=== PATIENT | female | born 1940 | race Caucasian/White ===

== ENCOUNTER 2022-07-08 17:27 | Inpatient (IN) ==
--- NOTE | 2022-07-08 17:54 | Emergency Department Note ---
Impression & Plan Pulmonary edema, Hypoxia, Elevated troponin I level, Acute respiratory acidosis, COVID-19 virus infection ED Provider Note NAME: GARRET VALDEZ AGE: 81 SEX: F : 1940 ARRIVES VIA: Ambulance INFORMANT: Patient, EMS ED PROVIDER(S): Noel Bills DO CHIEF COMPLAINT: Shortness of breath HPI: The patient is a 81-year-old female who presented to the emergency department for an evaluation of cough. The patient noticed productive cough over the course of the last few days. Her daughter who does live with her was tested positive for COVID-19 this week. The patient denies having any hemoptysis. She denies have any lower extremity pain. She does have chest pain associated with cough. She denies having any hematemesis. The patient has not been seen by her family doctor for the symptoms. Symptoms became much worse so family called 911 and the patient arrived via ALS today. The patient has been compliant with her outpatient medications. She does have an albuterol inhaler which she has been using with only minimal relief of her symptoms. She also has a history of diabetes. ROS: See above HPI for pertinent positives & negatives. A total of 10 systems reviewed and were otherwise negative. PAST MEDICAL HISTORY: See Below PAST SURGICAL HISTORY: See Below FAMILY HISTORY: See Below SOCIAL HISTORY: See Below HOME MEDICATIONS: See Below ALLERGIES: See Below VITALS: See Below PHYSICAL EXAMINATION: GENERAL: The patient is awake and alert. She appears somewhat anxious. EYES: The conjunctivae are clear. The pupils are round and reactive. EARS, NOSE, MOUTH AND THROAT: The nose is without any evidence of any deformity. NECK: The neck is nontender and supple. RESPIRATORY: Diminished breath sounds are noted throughout. There is mild tachypnea and conversational dyspnea appreciated. CARDIOVASCULAR: Regular rate and rhythm noted there no murmurs rubs or gallops normal S1 normal S2. GASTROINTESTINAL: The abdomen is soft. Abdomen is nontender. MUSCULOSKELETAL/EXTREMITIES: There is no evidence of gross deformity full range of motion is noted in the hips and shoulders. SKIN: Trace pedal edema was noted bilaterally. Skin is warm and dry. NEUROLOGIC: Patient is awake alert and oriented x3 MEDICAL DECISION MAKING: Patient is a 81-year-old female who presented to the emergency department by ambulance for an evaluation of difficulty breathing. The patient's had worsening difficulty breathing over the course the last week. Her daughter was diagnosed with COVID-19. She thinks she may also have COVID-19. She denies having any vomiting. She did have some lower extremity swelling and her physical exam did appear to be consistent with Rales and fluid overload. The patient's chest x-ray appears to be consistent pulmonary edema. She does have a low-grade fever so blood cultures were obtained. I discussed the patient's laboratory and radiographic studies with her. She was placed on supple oxygen. She was also treated with Lasix. The [facility] hospitalist was notified about the patient. Triage Nursing notes reviewed. Prior medical records reviewed Vital Signs: reviewed and remarkable for elevated blood pressure. Differential diagnosis: Reactive airway disease, pneumonia, pneumothorax, COPD, CHF, infections, cardiac ischemia, pulmonary embolism, musculoskeletal, gastrointestinal, as well as other pathologies. ER treatment provided: See below Diagnostics interpreted by me: ECG: EKG was obtained in the emergency department. My interpretation is sinus rhythm at 88 bpm. First-degree AV block was noted. Right bundle branch block pattern was appreciated. This was compared to a tracing from December 17, 2021. No changes were noted. Cardiac Monitoring: An order was placed for continuous cardiac monitoring. The monitor shows a rate of 80 bpm with sinus rhythm. Laboratory studies: As stated above and show below. Imaging studies: See below Consultation(s): Dr. Reddy was notified about the patient. Past Med/Surg History Medical History Positional vertigo Sensorineural hearing loss (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 Tinnitus of right ear Social History Smoking Status: Never smoker Preferred Language: [place] Feels Safe at Home: Yes Allergies Allergies Allergy/AdvReac Type Severity Reaction Status Date / Time No Known Allergies Allergy Unverified 12/17/21 14:42 Home Meds Home Medications Medication Instructions Recorded Confirmed albuterol sulfate 90 mcg/actuation 1 - 2 puff inhalation DAILY PRN 12/17/2111/25 aerosol inhaler Shortness Of Breath Or Wheezing allopurinol 100 mg tablet 100 mg PO QAM 12/17/21 12/17/21 duloxetine 20 mg capsule,delayed 20 mg PO QAM 12/17/21 12/17/21 release gabapentin 100 mg capsule 100 mg PO BID 12/17/21 12/17/21 glipizide 5 mg tablet, extended 5 mg PO BID 12/17/21 12/17/21 release 24 hr levothyroxine 100 mcg tablet 100 mcg PO QAM 12/17/21 12/17/21 liraglutide 0.6 mg/0.1 mL (18 mg/3 0.9 mg subcut HS 12/17/21 12/17/21 mL) subcutaneous pen injector (ITaotoza 3-Winston) pravastatin 20 mg tablet 20 mg PO HS 12/17/21 12/17/21 valsartan 320 1 tab PO QAM 12/17/21 12/17/21 mg-hydrochlorothiazide 12.5 mg tablet Results & Data (ED) Vital Signs Vital Signs - 24 hr 07/08/22 17:31 07/08/22 17:31 07/08/22 17:31 Temperature Temperature Source Oral Pulse Rate 86 Pulse Rate [Apical] Pulse Rate from SpO2 Sensor Respiratory Rate 26 H Respiratory Effort / Characteristics Labored Respiratory Depth Normal Blood Pressure 190/84 H Blood Pressure [Right Arm] Blood Pressure Mean 119 Blood Pressure Mean [Right Arm] Blood Pressure Position [Right Arm] Pulse Oximetry 88 L 88 L Oxygen Delivery Method Room Air Room Air Room Air Oxygen Flow Rate Sepsis Recent Fever Within 48 Hours Yes Sepsis New/Unexplained Change in Mental Status Yes Sepsis Action Taken by Nursing No Action Required Oxygen Flow Rate - Titration 3 Pulse Oximetry Post Tiitration 97 07/08/22 17:41 07/08/22 18:09 07/08/22 18:09 Temperature 37.6 C H Temperature Source Oral Pulse Rate Pulse Rate [Apical] 84 Pulse Rate from SpO2 Sensor Respiratory Rate 20 Respiratory Effort / Characteristics Non-Labored Respiratory Depth Normal Blood Pressure Blood Pressure [Right Arm] 197/92 H Blood Pressure Mean Blood Pressure Mean [Right Arm] 127 Blood Pressure Position [Right Arm] Pulse Oximetry 96 96 Oxygen Delivery Method Nasal Cannula Nasal Cannula Oxygen Flow Rate 2 2 Sepsis Recent Fever Within 48 Hours Sepsis New/Unexplained Change in Mental Status Sepsis Action Taken by Nursing Oxygen Flow Rate - Titration Pulse Oximetry Post Tiitration 07/08/22 18:22 07/08/22 17:43 07/08/22 17:50 Temperature Temperature Source Pulse Rate 87 84 Pulse Rate [Apical] 86 Pulse Rate from SpO2 Sensor 87 84 Respiratory Rate 20 18 23 Respiratory Effort / Characteristics Respiratory Depth Blood Pressure Blood Pressure [Right Arm] 197/92 H Blood Pressure Mean Blood Pressure Mean [Right Arm] 127 Blood Pressure Position [Right Arm] Pulse Oximetry 96 98 98 Oxygen Delivery Method Nasal Cannula Oxygen Flow Rate 2 Sepsis Recent Fever Within 48 Hours Sepsis New/Unexplained Change in Mental Status Sepsis Action Taken by Nursing Oxygen Flow Rate - Titration Pulse Oximetry Post Tiitration 07/08/22 18:00 07/08/22 18:10 07/08/22 18:20 Temperature Temperature Source Pulse Rate 85 84 87 Pulse Rate [Apical] Pulse Rate from SpO2 Sensor 84 84 Respiratory Rate 25 H 19 18 Respiratory Effort / Characteristics Respiratory Depth Blood Pressure Blood Pressure [Right Arm] Blood Pressure Mean Blood Pressure Mean [Right Arm] Blood Pressure Position [Right Arm] Pulse Oximetry 97 96 Oxygen Delivery Method Oxygen Flow Rate Sepsis Recent Fever Within 48 Hours Sepsis New/Unexplained Change in Mental Status Sepsis Action Taken by Nursing Oxygen Flow Rate - Titration Pulse Oximetry Post Tiitration 07/08/22 18:30 07/08/22 18:31 07/08/22 18:31 Temperature Temperature Source Pulse Rate 83 86 Pulse Rate [Apical] Pulse Rate from SpO2 Sensor Respiratory Rate 23 23 Respiratory Effort / Characteristics Respiratory Depth Blood Pressure 183/53 H Blood Pressure [Right Arm] Blood Pressure Mean 96 Blood Pressure Mean [Right Arm] Blood Pressure Position [Right Arm] Pulse Oximetry Oxygen Delivery Method Oxygen Flow Rate Sepsis Recent Fever Within 48 Hours Sepsis New/Unexplained Change in Mental Status Sepsis Action Taken by Nursing Oxygen Flow Rate - Titration Pulse Oximetry Post Tiitration 07/08/22 18:40 07/08/22 18:50 07/08/22 19:00 Temperature Temperature Source Pulse Rate 82 83 80 Pulse Rate [Apical] Pulse Rate from SpO2 Sensor Respiratory Rate 22 24 19 Respiratory Effort / Characteristics Respiratory Depth Blood Pressure Blood Pressure [Right Arm] Blood Pressure Mean Blood Pressure Mean [Right Arm] Blood Pressure Position [Right Arm] Pulse Oximetry Oxygen Delivery Method Oxygen Flow Rate Sepsis Recent Fever Within 48 Hours Sepsis New/Unexplained Change in Mental Status Sepsis Action Taken by Nursing Oxygen Flow Rate - Titration Pulse Oximetry Post Tiitration 07/08/22 19:05 07/08/22 19:09 07/08/22 19:28 Temperature Temperature Source Pulse Rate Pulse Rate [Apical] 81 80 82 Pulse Rate from SpO2 Sensor Respiratory Rate 20 17 18 Respiratory Effort / Characteristics Non-Labored Spontaneous Non-Labored Spontaneous Respiratory Depth Normal Normal Blood Pressure Blood Pressure [Right Arm] 178/57 H 178/57 H 201/73 H Blood Pressure Mean Blood Pressure Mean [Right Arm] 97 97 115 Blood Pressure Position [Right Arm] Sitting Sitting Pulse Oximetry 93 99 Oxygen Delivery Method Room Air Nasal Cannula Oxygen Flow Rate 3 Sepsis Recent Fever Within 48 Hours Sepsis New/Unexplained Change in Mental Status Sepsis Action Taken by Nursing Oxygen Flow Rate - Titration Pulse Oximetry Post Tiitration Home Medications Current Medication List: was personally reviewed by me Laboratory Data Attestation: I reviewed the patient's lab results. Result diagrams: 07/08/22 17:45 07/08/22 17:45 Lab Results 07/08/22 07/08/22 07/08/22 Range/Units 17:45 17:45 17:45 WBC 11.23 H (4.8-10.8) K/ul RBC 4.18 (3.93-5.22) M/uL Hgb 12.0 (12.0-16.0) g/dl Hct 37.7 (34.1-44.9) % MCV 90.2 (80.0-100.0) fL MCH 28.7 (25.0-34.0) pg MCHC 31.8 L (32.0-36.0) g/dL RDW Std Deviation 47.8 H (36.4-46.3) fL RDW Coeff of Gilberto 14.6 H (11.5-14.5) % Plt Count 193 (130-400) K/uL MPV 9.7 (9.4-12.3) fL Immature Gran % (Auto) 0.4 % Neut % (Auto) 82.3 % Lymph % (Auto) 6.9 % Keith % (Auto) 9.3 % Eos % (Auto) 0.9 % Baso % (Auto) 0.2 % Neut # (Auto) 9.25 H (1.4-6.5) K/uL Lymph # (Auto) 0.77 L (1.2-3.4) K/uL Keith # (Auto) 1.04 H (0.24-0.82) K/uL Eos # (Auto) 0.10 (0-0.50) K/uL Baso # (Auto) 0.02 (0-0.2) K/uL Immature Gran # (Auto) 0.05 H (0.00-0.02) K/uL PT (9.0-12.0) Seconds INR (0.9-1.1) APTT (21.0-31.0) Seconds PTT Ratio VBG pH (7.36-7.41) VBG pCO2 (38-50) mmHg VBG pO2 mmHg VBG HCO3 mmol/L VBG O2 Saturation % VBG Base Excess mEq/L Sodium 137 (136-145) mmol/L Potassium 4.7 (3.5-5.1) mmol/L Chloride 103 (98-107) mmol/L Carbon Dioxide 26 (21-32) mmol/L Anion Gap 8 (3-11) BUN 27 H (6-23) mg/dl Creatinine 1.43 H (0.6-1.2) mg/dl Est Cr Clr Drug Dosing 38.9 ml/min Est GFR ( Amer) 40.3 ml/min Est GFR (Non-Af Amer) 34.7 ml/min BUN/Creatinine Ratio 18.9 (10-20) Glucose 190 H (70-99(Fasting)) mg/dl Lactate 1.3 (0.4-2.0) mmol/L Calcium 8.7 (8.5-10.1) mg/dl Magnesium 1.7 (1.7-2.4) mg/dl Total Bilirubin 0.4 (0.2-1.0) mg/dl Direct Bilirubin 0.1 (0-0.2) mg/dl AST 48 H (13-39) U/L ALT 85 H (7-52) U/L Alkaline Phosphatase 111 H (34-104) U/L Troponin I High Sens 14.8 H (0-14) pg/ml B-Natriuretic Peptide (0-100) pg/ml Total Protein 7.0 (6.0-8.3) gm/dl Albumin 3.7 (3.4-5.0) gm/dl Procalcitonin (0-0.5) ng/ml SARS-CoV-2 (PCR) (Negative) Influenza Type A (PCR) (Neg) Influenza Type B (PCR) (Neg) RSV (RT-PCR) (Neg) 07/08/22 07/08/2222 Range/Units 17:45 17:45 18:04 WBC (4.8-10.8) K/ul RBC (3.93-5.22) M/uL Hgb (12.0-16.0) g/dl Hct (34.1-44.9) % MCV (80.0-100.0) fL MCH (25.0-34.0) pg MCHC (32.0-36.0) g/dL RDW Std Deviation (36.4-46.3) fL RDW Coeff of Gilberto (11.5-14.5) % Plt Count (130-400) K/uL MPV (9.4-12.3) fL Immature Gran % (Auto) % Neut % (Auto) % Lymph % (Auto) % Keith % (Auto) % Eos % (Auto) % Baso % (Auto) % Neut # (Auto) (1.4-6.5) K/uL Lymph # (Auto) (1.2-3.4) K/uL Keith # (Auto) (0.24-0.82) K/uL Eos # (Auto) (0-0.50) K/uL Baso # (Auto) (0-0.2) K/uL Immature Gran # (Auto) (0.00-0.02) K/uL PT 10.3 (9.0-12.0) Seconds INR 1.0 (0.9-1.1) APTT 26.8 (21.0-31.0) Seconds PTT Ratio 1.0 VBG pH (7.36-7.41) VBG pCO2 (38-50) mmHg VBG pO2 mmHg VBG HCO3 mmol/L VBG O2 Saturation % VBG Base Excess mEq/L Sodium (136-145) mmol/L Potassium (3.5-5.1) mmol/L Chloride (98-107) mmol/L Carbon Dioxide (21-32) mmol/L Anion Gap (3-11) BUN (6-23) mg/dl Creatinine (0.6-1.2) mg/dl Est Cr Clr Drug Dosing ml/min Est GFR ( Amer) ml/min Est GFR (Non-Af Amer) ml/min BUN/Creatinine Ratio (10-20) Glucose (70-99(Fasting)) mg/dl Lactate (0.4-2.0) mmol/L Calcium (8.5-10.1) mg/dl Magnesium (1.7-2.4) mg/dl Total Bilirubin (0.2-1.0) mg/dl Direct Bilirubin (0-0.2) mg/dl AST (13-39) U/L ALT (7-52) U/L Alkaline Phosphatase (34-104) U/L Troponin I High Sens (0-14) pg/ml B-Natriuretic Peptide 124 H (0-100) pg/ml Total Protein (6.0-8.3) gm/dl Albumin (3.4-5.0) gm/dl Procalcitonin 0.08 (0-0.5) ng/ml SARS-CoV-2 (PCR) (Negative) Influenza Type A (PCR) (Neg) Influenza Type B (PCR) (Neg) RSV (RT-PCR) (Neg) 07/08/22 07/08/22 Range/Units 18:04 18:27 WBC (4.8-10.8) K/ul RBC (3.93-5.22) M/uL Hgb (12.0-16.0) g/dl Hct (34.1-44.9) % MCV (80.0-100.0) fL MCH (25.0-34.0) pg MCHC (32.0-36.0) g/dL RDW Std Deviation (36.4-46.3) fL RDW Coeff of Gilberto (11.5-14.5) % Plt Count (130-400) K/uL MPV (9.4-12.3) fL Immature Gran % (Auto) % Neut % (Auto) % Lymph % (Auto) % Keith % (Auto) % Eos % (Auto) % Baso % (Auto) % Neut # (Auto) (1.4-6.5) K/uL Lymph # (Auto) (1.2-3.4) K/uL Keith # (Auto) (0.24-0.82) K/uL Eos # (Auto) (0-0.50) K/uL Baso # (Auto) (0-0.2) K/uL Immature Gran # (Auto) (0.00-0.02) K/uL PT (9.0-12.0) Seconds INR (0.9-1.1) APTT (21.0-31.0) Seconds PTT Ratio VBG pH 7.29 L (7.36-7.41) VBG pCO2 57 H (38-50) mmHg VBG pO2 30 mmHg VBG HCO3 27 mmol/L VBG O2 Saturation < 60.0 % VBG Base Excess -0.3 mEq/L Sodium (136-145) mmol/L Potassium (3.5-5.1) mmol/L Chloride (98-107) mmol/L Carbon Dioxide (21-32) mmol/L Anion Gap (3-11) BUN (6-23) mg/dl Creatinine (0.6-1.2) mg/dl Est Cr Clr Drug Dosing ml/min Est GFR ( Amer) ml/min Est GFR (Non-Af Amer) ml/min BUN/Creatinine Ratio (10-20) Glucose (70-99(Fasting)) mg/dl Lactate (0.4-2.0) mmol/L Calcium (8.5-10.1) mg/dl Magnesium (1.7-2.4) mg/dl Total Bilirubin (0.2-1.0) mg/dl Direct Bilirubin (0-0.2) mg/dl AST (13-39) U/L ALT (7-52) U/L Alkaline Phosphatase (34-104) U/L Troponin I High Sens (0-14) pg/ml B-Natriuretic Peptide (0-100) pg/ml Total Protein (6.0-8.3) gm/dl Albumin (3.4-5.0) gm/dl Procalcitonin (0-0.5) ng/ml SARS-CoV-2 (PCR) POSITIVE A* (Negative) Influenza Type A (PCR) Negative (Neg) Influenza Type B (PCR) Negative (Neg) RSV (RT-PCR) Negative (Neg) Imaging Data Radiologist's Impression: Chest X-Ray 07/08/22 17:41 XR chest 1V portable CLINICAL HISTORY: Sepsis TECHNIQUE: Single frontal radiograph of the chest was obtained. Comparison: None available at the time of this dictation. FINDINGS: Exam is limited by underpenetration. Cardiomegaly is noted. Prominence and cephalization of the vasculature is seen. No evidence of pleural effusion or pneumothorax. IMPRESSION: Mild pulmonary edema. Cardiomegaly is noted. ACT 112: Negative or not required by law. Electronically signed by: Ford Winters M.D. 07/08/2022 6:27 PM Discharge Plan Visit Data Chief Complaint: Shortness of Breath/Dyspnea Stated Complaint: SHORTNESS OF BREATH, COVID EXPOS ED Provider: Noel Bills Discharge Problem: Pulmonary edema, Hypoxia, Elevated troponin I level, Acute respiratory ac idosis, COVID-19 virus infection Patient Disposition: Being Evaluated by Hospitalist Forms Stand Alone Forms: [facility] Prescriptions Prescriptions: No Action glipizide 5 mg tablet extended release 24 hr 5 mg PO BID allopurinol 100 mg tablet 100 mg PO QAM levothyroxine 100 mcg tablet 100 mcg PO QAM pravastatin 20 mg tablet 20 mg PO HS gabapentin 100 mg capsule 100 mg PO BID albuterol sulfate 90 mcg/actuation HFA aerosol inhaler 1 - 2 puff INHALATION DAILY PRN (Reason: Shortness Of Breath Or Wheezing) duloxetine 20 mg capsule,delayed release(DR/EC) 20 mg PO QAM valsartan-hydrochlorothiazide 320-12.5 mg tablet 1 tab PO QAM Victoza 3-Winston 0.6 mg/0.1 mL (18 mg/3 mL) pen injector 0.9 mg SUBCUT HS Referrals Referrals: Marilin Joshua PA-C [Primary Care Provider] -
[2022-07-08 18:11] LABS: Basophils # (auto) 0.02 K/uL (0-0.2); Basophils % (auto) 0.2 %; Eosinophils % (auto) 0.9 %; Hematocrit (blood only) 37.7 % (34.1-44.9); Immature Granulocytes # (auto) 0.05 K/uL (0.00-0.02); Immature Granulocytes % (auto) 0.4 %; Lymphocytes # (auto) 0.77 K/uL (1.2-3.4); Lymphocytes % (auto) 6.9 %; Mean Corpuscular Hemoglobin 28.7 pg (25.0-34.0); Mean Corpuscular Hgb Conc 31.8 g/dL (32.0-36.0); Mean Corpuscular Volume 90.2 fL (80.0-100.0); Mean Platelet Volume 9.7 fL (9.4-12.3); Monocytes # (auto) 1.04 K/uL (0.24-0.82); Monocytes % (auto) 9.3 %; Neutrophils # (auto) 9.25 K/uL (1.4-6.5); Neutrophils % (auto) 82.3 %; Platelet Count 193 K/uL (130-400); RDW Coefficient of Variation 14.6 % (11.5-14.5); RDW Standard Deviation 47.8 fL (36.4-46.3); Red Blood Count 4.18 M/uL (3.93-5.22); White Blood Count 11.23 K/ul (4.8-10.8)
--- NOTE | 2022-07-08 18:29 | XRay Report ---
XR chest 1V portable CLINICAL HISTORY: Sepsis TECHNIQUE: Single frontal radiograph of the chest was obtained. Comparison: None available at the time of this dictation. FINDINGS: Exam is limited by underpenetration. Cardiomegaly is noted. Prominence and cephalization of the vascu lature is seen. No evidence of pleural effusion or pneumothorax. IMPRESSION: Mild pulmonary edema. Cardiomegaly is noted. ACT 112: Negative or not required by law. Electronically signed by: Ford Winters M.D. 07/08/2022 6:27 PM
[2022-07-08 18:30] LABS: Partial Thromboplastin Time 26.8 Seconds (21.0-31.0); Prothrombin Time 10.3 Seconds (9.0-12.0)
[2022-07-08 18:38] LABS: Base Excess VBG -0.3 mEq/L; HCO3 VBG 27 mmol/L; Oxygen Saturation VBG < 60.0 %; PCO2 VBG 57 mmHg (38-50); PO2 VBG 30 mmHg; pH VBG 7.29 (7.36-7.41)
[2022-07-08 18:40] LABS: Troponin I High Sensitivity 14.8 pg/ml (0-14)
[2022-07-08 18:51] LABS: Albumin Level 3.7 gm/dl (3.4-5.0); BUN Creatinine Ratio 18.9 (10-20); Bilirubin Direct 0.1 mg/dl (0-0.2); Bilirubin,Total 0.4 mg/dl (0.2-1.0); Calcium 8.7 mg/dl (8.5-10.1); Creatinine Clr Calc Pharmacy 38.9 ml/min; Est GFR (African American) 40.3 ml/min; Est GFR (Non-African American) 34.7 ml/min; Magnesium 1.7 mg/dl (1.7-2.4); Potassium 4.7 mmol/L (3.5-5.1)
[2022-07-08] MEDS ORDERED: FUROSEMIDE 40 MG/4 ML VIAL IV ONE (19:18)
[2022-07-08 19:23] LABS: Influenza A virus by PCR Negative (Neg); Influenza B virus by PCR Negative (Neg); RSV by PCR Negative (Neg)
[2022-07-08 19:29] LABS: SARS CoV2 RNA(COVID-19) InHosp POSITIVE (Negative)
[2022-07-08] MEDS ORDERED: dexAMETHasone**PF** 10 MG/ML VIAL IV ONE (19:30)
--- NOTE | 2022-07-08 19:42 | History & Physical Report ---
Date of Service July 08, 2022 Assessment & Plan (1) COVID-19 virus infection: Plan: - Gradual development of productive cough, dyspnea on exertion fatigue, general weakness for the past 4 days. - Daughter, who lives with patient, tested positive for COVID this week. - Patient is unvaccinated, with history of COPD, diabetes, obesity putting her at risk for moderate/severe illness. - We will place patient on IV steroids, but defer on remdesivir given DIANA, borderline GFR at 34. - Supportive care with Tylenol, Mucinex, and treatments, incentive spirometer. - WBC mildly elevated, however Pro-Carlos Alberto normal and CXR without evidence of superimposed bacterial pneumonia, therefore will hold off on antibiotics for now. Blood cultures obtained. (2) Elevated troponin I level: Plan: - troponin mildly elevated to 14.8, likely due to hypoxia, vascular congestion, underlying COVID infection. Will trend, obtain echo. - EKG today with first-degree AV block and RBBB, both which are seen on EKG from November of this year. There are inverted T waves, and it was notably in V1, which are also apparent on prior EKG. (3) Acute respiratory acidosis: Plan: - pH 7.29, CO2 57, COVID-19 infection. - Continue home inhalers with scheduled neb treatments, flutter valve, as well as steroids for hypoxia due to COVID-19. (4) Pulmonary edema: Plan: - No history of heart failure per chart review, BNP mildly elevated 124 but with lower extremity edema and pulmonary edema on CXR. - 40 mg IV Lasix given in ED, will continue 40 mg twice daily. - Echo as above. (5) Hypertension: Plan: - Hold valsartan/HCTZ given DIANA, will order Lopressor as needed overnight for hypotension. (6) DIANA (acute kidney injury): Plan: - Creatinine 1.43, only have 1 prior lab value to go off of but was 1.1 earlier this year. - Likely a combination of taking regular Advil and meloxicam for symptomatic management of COVID-19 infection, as well as decreased oral intake over the past day or so. - Hold on fluids, use Tylenol for pain control. Hold valsartan/HCTZ. - We will avoid fluids for now given her edema in her legs on CXR, and may have to accept transient rise in creatinine with Lasix, although improving her volume overload may ultimately help improve her kidney function. (7) COPD (chronic obstructive pulmonary disease): Plan: - Continue home inhalers with scheduled neb treatment. - Steroids, as above for COVID-19 infection. - Quit smoking 20 years ago. (8) DM2 (diabetes mellitus, type 2): Plan: - Hold oral medications, placed on weight-based/accounting for steroids basal/bolus insulin. - A1c in M. - DM/low Na diet. (9) Gout: Plan: - Continue allopurinol. Plan - Admit to PCU. - SCDs, Lovenox for VTE ppx. - Full Code. History of Present Illness Chief Complaint: SOB x 3 days Primary Care Provider: Marilin Joshua PA-C Griselda Perez is a 81-year-old female with a past medical history significant for hypertension, hyperlipidemia, DM2, hypothyroidism, depression, CKD 3, gout, who is presenting today to be evaluated for cough. Her daughter, who she lives with tested positive for COVID-19 this week. Patient has developed a cough earlier this week and has had some chest pain associated with it. She only has chest pain with cough, never at rest or with exertion. She developed difficulty breathing today when ambulating home, therefore family called 911 for evaluation in the ED. she does have some lower extremity swelling. No complaints of chest pain, or shortness of breath at rest, palpitations, hemoptysis, abdominal pain, nausea, vomiting. On presentation to the ED, patient was hypertensive with highest BP recorded at 201/73, 93% on room air, so transitioned to nasal cannula now at 98% on 3 L NC. She is not tachycardic, afebrile, RR < 24. Labs are significant for elevated WBC 11.23, with left shift. VB.2 /. Renal function slightly off baseline, creatinine 1.43, BUN 27. Glucose is about 190. AST, ALT, alk phos all elevated 48/85/111 respectively. High sensitivity troponin 14.8. BNP 124. She is COVID-positive. Her CXR showed mild mild edema. Allergies Allergy/AdvReac Type Severity Reaction Status Date / Time No Known Allergies Allergy Verified 07/08/22 19:32 Home Medications Medication Instructions Recorded Confirmed Type albuterol sulfate 90 mcg/actuation 1 - 2 puff inhalation DAILY PRN 12/17/21 07/08/22 History aerosol inhaler Shortness Of Breath Or Wheezing duloxetine 20 mg capsule,delayed 20 mg PO QAM 12/17/21 07/08/22 History release gabapentin 100 mg capsule 100 mg PO BID 12/17/21 07/08/22 History glipizide 5 mg tablet, extended 5 mg PO BIDM 12/17/21 07/08/22 History release 24 hr levothyroxine 100 mcg tablet 100 mcg PO QAM 12/17/21 07/08/22 History liraglutide 0.6 mg/0.1 mL (18 mg/3 0.9 mg subcut HS 12/17/21 07/08/22 History mL) subcutaneous pen injector (LogLogictoza 3-Winston) pravastatin 20 mg tablet 20 mg PO HS 12/17/21 07/08/22 History valsartan 320 1 tab PO QAM 12/17/21 07/08/22 History mg-hydrochlorothiazide 12.5 mg tablet allopurinol 300 mg tablet 300 mg PO QAM 07/08/22 07/08/22 History ibuprofen 125 mg-acetaminophen 250 2 tab PO Q8H PRN Pain 07/08/22 07/08/22 H istory mg tablet (Advil Dual Action) ibuprofen 600 mg tablet 600 mg PO Q8H PRN Pain 07/08/22 07/08/22 History meclizine 25 mg tablet 25 mg PO DIRECTED PRN Dizziness 07/08/22 07/08/22 History melatonin 3 mg tablet 3 mg PO HS PRN Sleep 07/08/22 07/08/22 History meloxicam 15 mg tablet 15 mg PO QAM 07/08/22 07/08/22 History sennosides 8.6 mg tablet 8.6 mg PO DAILY PRN Constipation 07/08/22 07/08/22 History (Vegetable Laxative) Past Med/Surg History Medical History Positional vertigo Sensorineural hearing loss (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 Tinnitus of right ear Social History Smoking Status: Former smoker Hx Alcohol Use: Yes (quit 20+ years ago) Hx Substance Use: No Preferred Language: Irish Beliefs That Will Affect Care: None Current Living Situation: Alone Feels Safe at Home: Yes Safety Concerns: Feels Safe At This Time Assistive Devices: Cane Review of Systems Review of Systems: Constitutional: chills, weakness, fatigue, myalgias, x4 days; no anorexia, night sweats Eyes: No diplopia, no worsening or blurred vision ENT: normal hearing, no trouble swallowing Respiratory: cough and CHAMBERS x 4 days; no SOB at rest Cardiovascular: No chest pain, tightness or palpitations Abdomen: No pain, nausea, vomiting, diarrhea or constipation : Denies dysuria, hematuria, increased urgency/frequency, urinary retention Musculoskeletal: No joint pain, calf pain, swelling Neurologic: No weakness, numbness/tingling, or balance problems Psychiatric: No anxiety or depression Skin: No rash or itch Physical Exam Physical Exam: General: awake, alert, no apparent distress Head: Normocephalic, atraumatic ENT: PERRL, EOMI, no pharyngeal exudate, mucous membranes moist Chest: Diminished breath sounds throughout with conversational dyspnea Cardiac: Regular rate and rhythm, no murmur, no JVD, normal peripheral pulses, good capillary refill Abdominal: NABS x 4 quadrants, soft, nontender to palpation, no rebound, guarding or tenderness Extremities: Bilateral lower extremity edema; normal inspection, no erythema, calfs nontender to palpation Psych: Normal mood and affect Neuro: AAO x 3, strength intact bilaterally and rated 5/5, no motor deficits, speech is clear, no peripheral sensory deficits Skin: no rash or erythema Results & Data Results & Data ([facility]) Vital Signs (Past 12 Hours) Vital Signs Temp Pulse Pulse Resp BP BP Pulse Ox 07/08/22 19:28 82 18 201/73 H 99 07/08/22 19:09 80 17 178/57 H 93 07/08/22 19:05 81 20 178/57 H 07/08/22 19:00 80 19 07/08/22 18:50 83 24 07/08/22 18:40 82 22 07/08/22 18:31 86 23 07/08/22 18:31 183/53 H 07/08/22 18:30 83 23 07/08/22 18:20 87 18 07/08/22 18:10 84 19 96 07/08/22 18:00 85 25 H 97 07/08/22 17:50 84 23 98 07/08/22 17:43 87 18 98 07/08/22 18:22 86 20 197/92 H 96 07/08/22 18:09 84 20 197/92 H 96 07/08/22 18:09 96 07/08/22 17:41 37.6 C H 07/08/22 17:31 88 L 07/08/22 17:31 07/08/22 17:31 86 26 H 190/84 H 88 L O2 Del Method O2 Flow Rate 07/08/22 19:28 Nasal Cannula 3 07/08/22 19:09 Room Air 07/08/22 19:05 07/08/22 19:00 07/08/22 18:50 07/08/22 18:40 07/08/22 18:31 07/08/22 18:31 07/08/22 18:30 07/08/22 18:20 07/08/22 18:10 07/08/22 18:00 07/08/22 17:50 07/08/22 17:43 07/08/22 18:22 Nasal Cannula 2 07/08/22 18:09 Nasal Cannula 2 07/08/22 18:09 Nasal Cannula 2 07/08/22 17:41 07/08/22 17:31 Room Air 07/08/22 17:31 Room Air 07/08/22 17:31 Room Air Laboratory Results Abnormal lab results 07/08/22 07/08/22 07/08/22 Range/Units 17:45 17:45 18:04 WBC 11.23 H (4.8-10.8) K/ul MCHC 31.8 L (32.0-36.0) g/dL RDW Std Deviation 47.8 H (36.4-46.3) fL RDW Coeff of Gilberto 14.6 H (11.5-14.5) % Neut # (Auto) 9.25 H (1.4-6.5) K/uL Lymph # (Auto) 0.77 L (1.2-3.4) K/uL Valley # (Auto) 1.04 H (0.24-0.82) K/uL Immature Gran # (Auto) 0.05 H (0.00-0.02) K/uL VBG pH (7.36-7.41) VBG pCO2 (38-50) mmHg BUN 27 H (6-23) mg/dl Creatinine 1.43 H (0.6-1.2) mg/dl Glucose 190 H (70-99(Fasting)) mg/dl AST 48 H (13-39) U/L ALT 85 H (7-52) U/L Alkaline Phosphatase 111 H (34-104) U/L Troponin I High Sens 14.8 H (0-14) pg/ml B-Natriuretic Peptide 124 H (0-100) pg/ml SARS-CoV-2 (PCR) (Negative) 07/08/22 07/08/22 Range/Units 18:04 18:27 WBC (4.8-10.8) K/ul MCHC (32.0-36.0) g/dL RDW Std Deviation (36.4-46.3) fL RDW Coeff of Gilberto (11.5-14.5) % Neut # (Auto) (1.4-6.5) K/uL Lymph # (Auto) (1.2-3.4) K/uL Valley # (Auto) (0.24-0.82) K/uL Immature Gran # (Auto) (0.00-0.02) K/uL VBG pH 7.29 L (7.36-7.41) VBG pCO2 57 H (38-50) mmHg BUN (6-23) mg/dl Creatinine (0.6-1.2) mg/dl Glucose (70-99(Fasting)) mg/dl AST (13-39) U/L ALT (7-52) U/L Alkaline Phosphatase (34-104) U/L Troponin I High Sens (0-14) pg/ml B-Natriuretic Peptide (0-100) pg/ml SARS-CoV-2 (PCR) POSITIVE A* (Negative) Diagnostic Findings Chest X-Ray 07/08/22 17:41 XR chest 1V portable CLINICAL HISTORY: Sepsis TECHNIQUE: Single frontal radiograph of the chest was obtained. Comparison: None available at the time of this dictation. FINDINGS: Exam is limited by underpenetration. Cardiomegaly is noted. Prominence and cephalization of the vasculature is seen. No evidence of pleural effusion or pneumothorax. IMPRESSION: Mild pulmonary edema. Cardiomegaly is noted. ACT 112: Negative or not required by law. Electronically signed by: Ford Winters M.D. 07/08/2022 6:27 PM ECG Additional Comments: Poor data quality, interpretation may be adversely affected Sinus rhythm with 1st degree A-V block Right bundle branch block Inferior infarct (cited on or before 08-JUL-2022) Abnormal ECG When compared with ECG of 17-DEC-2021 13:24, Previous ECG has undetermined rhythm, needs review Inverted T waves have replaced nonspecific T wave abnormality in Inferior leads T wave amplitude has increased in Lateral leads. Code Status & VTE Plan Code Status Full code. Supervising Physician Co-Signing Physician Notes Attending addendum: I have physically seen this patient, have supervised the medical residents activities, and agree with the H&P unless as otherwise noted. Assessment and Plan: COVID-19 infection with hypoxia- Placed on dexamethasone 6 mg IV daily Not a candidate for remdesivir now due to borderline acute kidney function with a GFR of 34. Will reassess in a.m. tomorrow Guaifenesin extended release 12 mg p.o. twice daily Incentive spirometry No suggestion of secondary bacterial pneumonia at this time Pulmonary edema/elevated troponin level- May be secondary to stress of COVID infection Troponin 14.8 on admission The patient will be admitted to telemetry for serial cardiac enzymes, serial EKG's, cardiac rhythm monitoring and a 2-D echocardiogram with Dopplers. Received furosemide 40 mg IV in ED and will continue twice daily Remaining orders and notations as noted PG Care Time/CCT Total # of Minutes Spent Total Time Spent with Patient: Total time spent is greater than 50% in coordination of care (as documented) at patient's floor/unit and/or counseling patient: Coding Level of Care Code 46353 Initial Inpt Care Lvl 3 Diagnoses COVID-19 virus infection U07.1 Elevated troponin I level R77.8 Acute respiratory acidosis J96.02 Pulmonary edema J81.0 Chronicity: acute Hypertension I10 DIANA (acute kidney injury) N17.9 COPD (chronic obstructive pulmonary disease) J44.9 DM2 (diabetes mellitus, type 2) E11.9 Gout M10.9 (1) Pulmonary edema Chronicity: acute Qualified Code(s): J81.0 - Acute pulmonary edema
[2022-07-08 20:25] LABS: Appearance Urine Clear (Clear); Bacteria Urine Automated Negative (Negative); Bilirubin Urine Negative (Negative); Blood Urine Negative (Negative); Color Urine Yellow; Epithelial Cell Urine Auto >30 /lpf (0-5); Glucose Urine UA Negative (Negative); Ketones Urine Negative (Negative); Leukocyte Esterase Urine 1+ (Negative); Nitrite Urine Negative (Negative); Protein Urine Trace (Negative); RBC Urine Automated 0-4 /hpf (0-4); Specific Gravity Urine 1.016 (1.000-1.030); Urobilinogen Urine Negative (Negative)
[2022-07-08] MEDS ORDERED: CARBOHYDRATES FOR HYPOGLYCEMIA PO PRN (23:50)
[2022-07-08] MEDS ORDERED: MECLIZINE HCL 25 MG TAB PO PRN (23:50)
[2022-07-08] MEDS ORDERED: ALUMINUM/MAGNESIUM SUSP 30 ML UDC PO PRN (23:50)
[2022-07-08] MEDS ORDERED: GLUCAGON FOR INJ 1 MG VIAL SQ PRN (23:50)
[2022-07-08] MEDS ORDERED: guaiFENesin 600 MG TABCR PO PRN (23:50)
[2022-07-08] MEDS ORDERED: DC ALL PREVIOUSLY ORDERED DIABETES MEDS ONE (23:50)
[2022-07-08] MEDS ORDERED: GLUCOSE 40% GEL 15 GM TUBE PO PRN (23:50)
[2022-07-08] MEDS ORDERED: GLUCOSE 10 TAB/TUBE PO PRN (23:50)
[2022-07-08] MEDS ORDERED: POLYETHYLENE (MIRALAX) 17 GM PACK PO PRN (23:50)
[2022-07-08] MEDS ORDERED: DEXTROSE 50% 50 ML SYRINGE IV PRN (23:50)
[2022-07-08] MEDS ORDERED: ALBUTEROL 0.083% NEBU SOLN 3 ML VIAL INH PRN (23:50)
[2022-07-08] MEDS ORDERED: SENNA 8.6 MG TAB PO PRN (23:50)
[2022-07-08] MEDS ORDERED: ALBUTEROL HFA 8 GM INHALER INH PRN (23:50)
[2022-07-08] MEDS ORDERED: MELATONIN 3 MG TAB PO PRN (23:50)
[2022-07-08] MEDS ORDERED: ONDANSETRON INJ 2 MG/ML 2 ML VIAL IV PRN (23:50)
[2022-07-09] MEDS: LANTUS PER UNIT CHARGE SQ SCH ×3 (00:58→20:43)
[2022-07-09] MEDS: INSULIN ASPART PER UNIT SC SCH ×5 (00:58→20:43)
[2022-07-09] MEDS: GABAPENTIN 100 MG CAP PO SCH ×3 (02:42→20:28)
[2022-07-09] MEDS: METOPROLOL TARTRATE 1 MG/ML VIAL IV SCH ×4 (02:44→17:13)
[2022-07-09] MEDS: PRAVASTATIN SOD 20 MG TAB PO SCH ×2 (02:44→20:28)
[2022-07-09] MEDS: LEVOTHYROXINE SODIUM 100 MCG TABLET PO SCH (05:15)
[2022-07-09] MEDS ORDERED: COUGH DROP (SUGAR FREE) LOZ 24 LOZ/1 BOX BUCCAL PRN (05:54)
[2022-07-09 07:45] LABS: Hematocrit (blood only) 35.6 % (34.1-44.9); Hemoglobin 11.7 g/dl (12.0-16.0); Mean Corpuscular Hemoglobin 28.7 pg (25.0-34.0); Mean Corpuscular Hgb Conc 32.9 g/dL (32.0-36.0); Mean Corpuscular Volume 87.5 fL (80.0-100.0); Mean Platelet Volume 9.7 fL (9.4-12.3); Platelet Count 217 K/uL (130-400); RDW Coefficient of Variation 14.6 % (11.5-14.5); RDW Standard Deviation 46.5 fL (36.4-46.3); Red Blood Count 4.07 M/uL (3.93-5.22); White Blood Count 12.14 K/ul (4.8-10.8)
[2022-07-09 08:16] LABS: Basophils # (auto) 0.01 K/uL (0-0.2); Basophils % (auto) 0.1 %; Immature Granulocytes # (auto) 0.05 K/uL (0.00-0.02); Immature Granulocytes % (auto) 0.4 %; Lymphocytes # (auto) 0.51 K/uL (1.2-3.4); Lymphocytes % (auto) 4.2 %; Monocytes # (auto) 0.61 K/uL (0.24-0.82); Neutrophils # (auto) 10.96 K/uL (1.4-6.5); Neutrophils % (auto) 90.3 %
[2022-07-09 08:27] LABS: Albumin Globulin Ratio 1.1 (0.9-2); Albumin Level 3.8 gm/dl (3.4-5.0); BUN Creatinine Ratio 23.2 (10-20); Bilirubin,Total 0.4 mg/dl (0.2-1.0); Calcium 8.7 mg/dl (8.5-10.1); Creatinine Clr Calc Pharmacy 39.7 ml/min; Est GFR (African American) 40.6 ml/min; Globulin 3.5 gm/dl (2.5-4.0); Magnesium 1.8 mg/dl (1.7-2.4); Potassium 4.9 mmol/L (3.5-5.1); Total Protein 7.3 gm/dl (6.0-8.3)
[2022-07-09 08:32] LABS: Troponin I High Sensitivity 16.2 pg/ml (0-14)
[2022-07-09] MEDS: DULoxetine HCL 20 MG CAP PO SCH (08:35)
[2022-07-09] MEDS: allopurinoL 300 MG TAB PO SCH (08:35)
[2022-07-09] MEDS: dexAMETHasone 6 MG in SYRINGE 0 ML IV SCH (08:36)
[2022-07-09] MEDS: VALSARTAN 80 MG TAB PO SCH (08:37)
[2022-07-09] MEDS: hydroCHLOROthiazide 25 MG TAB PO SCH (08:37)
[2022-07-09] MEDS ORDERED: ENOXAPARIN INJ 40 MG/0.4 ML SYR SQ SCH (09:00)
[2022-07-09] MEDS ORDERED: FUROSEMIDE 40 MG/4 ML VIAL IV SCH (09:00)
[2022-07-09 11:10] LABS: Estimated Average Glucose 192 mg/dl; Hemoglobin A1C 8.3 % (4.5-5.6)
--- NOTE | 2022-07-09 13:09 | Hospitalist Progress Note ---
Date of Service July 09, 2022 Assessment & Plan (1) COVID-19 virus infection: Plan: - Gradual development of productive cough, dyspnea on exertion fatigue, general weakness for the past 4 days. - Daughter, who lives with patient, tested positive for COVID this week. - Patient is unvaccinated, with history of COPD, diabetes, obesity putting her at risk for moderate/severe illness. - We will place patient on IV steroids, but defer on remdesivir given DIANA, borderline GFR at 34. - Supportive care with Tylenol, Mucinex, and treatments, incentive spirometer. - WBC mildly elevated, however Pro-Carlos Alberto normal and CXR without evidence of superimposed bacterial pneumonia, therefore will hold off on antibiotics for now. Blood cultures obtained. (2) Acute respiratory acidosis: Plan: - pH 7.29, CO2 57, COVID-19 infection. - Continue home inhalers with scheduled neb treatments, flutter valve, as well as steroids for hypoxia due to COVID-19. (3) DIANA (acute kidney injury): Plan: Creatinine 1.43, only have 1 prior lab value to go off of but was 1.1 earlier this year. - Likely a combination of taking regular Advil and meloxicam for symptomatic management of COVID-19 infection, as well as decreased oral intake over the past day or so. - Avoid fluids for now given her edema. - Monitor (4) Pulmonary edema: Plan: No history of heart failure per chart review, BNP mildly elevated 124 but with lower extremity edema and pulmonary edema on CXR. - 40 mg IV Lasix given in ED. - Echo -> Hold further Lasix for now. (5) Hypertension: Plan: BP is 160/70 today. - Continue home valsartan-HCTZ (6) COPD (chronic obstructive pulmonary disease): Plan: - Continue home inhalers with scheduled neb treatment. - Steroids, as above for COVID-19 infection. - Quit smoking 20 years ago. (7) DM2 (diabetes mellitus, type 2): Plan: A1c was 8.3%. - Hold oral medications, placed on weight-based/accounting for steroids basal/bolus insulin. - DM/low Na diet. (8) Gout: Plan: - Continue allopurinol. Plan - SCDs, Lovenox for VTE ppx. Admission and Anticipated Discharge Date Admission Date: July 08, 2022 Subjective Doing well today. Still coughing with some productive sputum. Reports no fevers/chills, chest pain, abdominal pain, nausea, or vomiting. Physical Exam Constitutional: WD/WN, vitals as above + morbidly obese Eyes: EOM intact bilaterally; no conjunctival abnormality ENMT: external ear and nose normal, oropharynx normal Neck: trachea midline, no thyromegaly normal visual inspection Respiratory: normal respiratory effort, lungs clear to auscultation no respiratory distress Cardiovascular: RRR, no murmur, no edema Gastrointestinal (Abdomen): Inspection/Auscultation: abdomen normal to inspection; abdomen not distended Musculoskeletal: no cyanosis or clubbing, extremities motor strength 5/5 Skin: no rashes, warm and dry Neurologic: moves all extremities and awake Psychiatric: Orientation: alert, oriented to person and cooperative Results & Data Results & Data ([facility]) Vital Signs (Past 12 Hours) Vital Signs Temp Pulse Pulse Resp BP BP Pulse Ox 07/09/22 12:03 68 159/73 H 07/09/22 12:03 36.5 C 68 20 159/73 H 96 07/09/22 08:32 69 160/83 H 07/09/22 07:44 36.9 C 60 17 151/82 H 96 07/09/22 06:13 70 156/82 H 07/09/22 02:44 77 163/62 H 07/09/22 02:40 36.3 C L 76 16 163/62 H 96 O2 Del Method O2 Flow Rate 07/09/22 12:03 07/09/22 12:03 Nasal Cannula 1.5 07/09/22 08:32 07/09/22 07:44 Nasal Cannula 2 07/09/22 06:13 07/09/22 02:44 07/09/22 02:40 Nasal Cannula 3 PG Care Time/CCT Total # of Minutes Spent Total Time Spent with Patient: Total time spent is greater than 50% in coordination of care (as documented) at patient's floor/unit and/or counseling patient: Coding Level of Care Code 50247 Subseq Hosp Care Lvl 2 Diagnoses COVID-19 virus infection U07.1 Acute respiratory acidosis J96.02 DIANA (acute kidney injury) N17.9 Pulmonary edema J81.0 Chronicity: acute Hypertension I10 COPD (chronic obstructive pulmonary disease) J44.9 DM2 (diabetes mellitus, type 2) E11.9 Gout M10.9 (1) Pulmonary edema Chronicity: acute Qualified Code(s): J81.0 - Acute pulmonary edema
--- NOTE | 2022-07-09 13:55 | XCELERA ---
[id number]
--- NOTE | 2022-07-09 15:13 | Electrocardiogram Report ---
Test Reason : Blood Pressure : / mmHG Vent. Rate : 088 BPM Atrial Rate : 088 BPM P-R Int : 250 ms QRS Dur : 132 ms QT Int : 386 ms P-R-T Axes : -11 008 006 degrees QTc Int : 467 ms Poor data quality, interpretation may be adversely affected Sinus rhythm with 1st degree A-V block Right bundle branch block Inferior infarct (cited on or before 08-JUL-2022) Abnormal ECG When compared with ECG of 17-DEC-2021 13:24, Inverted T waves have replaced nonspecific T wave abnormality in Inferior leads T wave amplitude has increased in Lateral leads Confirmed by Noel Crawford ([id number]) on 07/09/2022 3:12:49 PM Referred By: REFERRED SELF Confirmed By:Noel Crawford
--- NOTE | 2022-07-09 19:39 | Billing Data ---
Date of Service July 09, 2022 Coding Level of Care Code 33173 Initial Inpt Care Lvl 3
[2022-07-10] MEDS: METOPROLOL TARTRATE 1 MG/ML VIAL IV SCH
[2022-07-10] MEDS: ACETAMINOPHEN 325 MG TAB PO PRN ×2 (00:17→08:19)
[2022-07-10] MEDS ORDERED: FIRST - Mouthwash BLM 5 ML UDP PO ONE (00:25)
--- NOTE | 2022-07-10 03:23 | Communication Note ---
Date of Service: July 10, 2022 Messaged about Scheduled IV Lopressor and HR 64. I have dc'd the Lopressor as this medication is not part of patient's home regimen. Current bp 173/82
[2022-07-10] MEDS: LEVOTHYROXINE SODIUM 100 MCG TABLET PO SCH (06:24)
[2022-07-10 06:28] LABS: Mean Corpuscular Hemoglobin 28.2 pg (25.0-34.0); Mean Corpuscular Hgb Conc 31.6 g/dL (32.0-36.0); Mean Corpuscular Volume 89.2 fL (80.0-100.0); Mean Platelet Volume 9.5 fL (9.4-12.3); Platelet Count 244 K/uL (130-400); RDW Coefficient of Variation 14.6 % (11.5-14.5); RDW Standard Deviation 47.2 fL (36.4-46.3); Red Blood Count 4.26 M/uL (3.93-5.22); White Blood Count 11.97 K/ul (4.8-10.8)
[2022-07-10 07:24] LABS: BUN Creatinine Ratio 30.3 (10-20); Calcium 8.7 mg/dl (8.5-10.1); Creatinine Clr Calc Pharmacy 36.1 ml/min; Est GFR (African American) 36.5 ml/min; Est GFR (Non-African American) 31.5 ml/min; Potassium 4.8 mmol/L (3.5-5.1)
[2022-07-10] MEDS: INSULIN ASPART PER UNIT SC SCH ×4 (08:12→20:57)
[2022-07-10] MEDS: LANTUS PER UNIT CHARGE SQ SCH ×2 (08:13→20:58)
[2022-07-10] MEDS: DULoxetine HCL 20 MG CAP PO SCH (08:21)
[2022-07-10] MEDS: hydroCHLOROthiazide 25 MG TAB PO SCH (08:22)
[2022-07-10] MEDS: VALSARTAN 80 MG TAB PO SCH (08:22)
[2022-07-10] MEDS: allopurinoL 300 MG TAB PO SCH (08:23)
[2022-07-10] MEDS: dexAMETHasone 6 MG in SYRINGE 0 ML IV SCH (08:23)
[2022-07-10] MEDS: ENOXAPARIN INJ 40 MG/0.4 ML SYR SQ SCH (08:24)
[2022-07-10] MEDS: GABAPENTIN 100 MG CAP PO SCH ×2 (08:25→21:06)
--- NOTE | 2022-07-10 13:17 | Hospitalist Progress Note ---
Date of Service July 10, 2022 Assessment & Plan (1) COVID-19 virus infection: Plan: - Gradual development of productive cough, dyspnea on exertion fatigue, general weakness for the past 4 days. - Daughter, who lives with patient, tested positive for COVID this week. - Patient is unvaccinated, with history of COPD, diabetes, obesity putting her at risk for moderate/severe illness. - We will place patient on IV steroids, but defer on remdesivir given DIANA, borderline GFR at 34. - Supportive care with Tylenol, Mucinex, and treatments, incentive spirometer. - WBC mildly elevated, however Pro-Carlos Alberto normal and CXR without evidence of superimposed bacterial pneumonia, therefore will hold off on antibiotics for now. Blood cultures obtained. -> Improving somewhat. Able to wean to room air, but then went down to 85%. RN put her back on 1L. Will get 2-step in AM if still some concern. (2) DIANA (acute kidney injury): Plan: Creatinine 1.43, only have 1 prior lab value to go off of but was 1.1 earlier this year. - Likely a combination of taking regular Advil and meloxicam for symptomatic management of COVID-19 infection, as well as decreased oral intake over the past day or so. - Avoid fluids for now given her edema. - Monitor -> Somewhat worse today. Will hold ARB for now and HCTZ. (3) Acute respiratory acidosis: Plan: - pH 7.29, CO2 57, COVID-19 infection. - Continue home inhalers with scheduled neb treatments, flutter valve, as well as steroids for hypoxia due to COVID-19. (4) Pulmonary edema: Plan: No history of heart failure per chart review, BNP mildly elevated 124 but with lower extremity edema and pulmonary edema on CXR. - 40 mg IV Lasix given in ED. - Echo -> Hold further Lasix for now. (5) Hypertension: Plan: BP is 125/65 today. - Hold home valsartan-HCTZ (6) COPD (chronic obstructive pulmonary disease): Plan: - Continue home inhalers with scheduled neb treatment. - Steroids, as above for COVID-19 infection. - Quit smoking 20 years ago. (7) DM2 (diabetes mellitus, type 2): Plan: A1c was 8.3%. - Hold oral medications, placed on weight-based/accounting for steroids basal/bolus insulin. - DM/low Na diet. (8) Gout: Plan: - Continue allopurinol. Plan - SCDs, Lovenox for VTE ppx. Admission and Anticipated Discharge Date Admission Date: July 08, 2022 Subjective Doing well today. No major issues. Cough is improving. Sputum is improving. Some knee pain, but otherwise stable. Reports no fevers/chills, chest pain, shortness of breath, abdominal pain, nausea, or vomiting. Physical Exam Constitutional: WD/WN, vitals as above + morbidly obese Eyes: EOM intact bilaterally; no conjunctival abnormality ENMT: external ear and nose normal, oropharynx normal Neck: trachea midline, no thyromegaly normal visual inspection Respiratory: normal respiratory effort, lungs clear to auscultation no respiratory distress Cardiovascular: RRR, no murmur, no edema Gastrointestinal (Abdomen): Inspection/Auscultation: abdomen normal to inspection; abdomen not distended Musculoskeletal: no cyanosis or clubbing, extremities motor strength 5/5 Skin: no rashes, warm and dry Neurologic: moves all extremities and awake Psychiatric: Orientation: alert, oriented to person and cooperative Results & Data Results & Data ([facility]) Vital Signs (Past 12 Hours) Vital Signs Temp Pulse Resp BP Pulse Ox O2 Del Method O2 Flow Rate 07/10/22 12:10 37 C 65 20 126/66 92 Nasal Cannula 1 07/10/22 08:00 Room Air 07/10/22 07:49 36.8 C 63 20 148/65 H 92 Room Air 07/10/22 03:11 36.8 C 64 12 173/82 H 96 Nasal Cannula 1 PG Care Time/CCT Total # of Minutes Spent Total Time Spent with Patient: Total time spent is greater than 50% in coordination of care (as documented) at patient's floor/unit and/or counseling patient: Coding Level of Care Code 05893 Subseq Hosp Care Lvl 2 Diagnoses COVID-19 virus infection U07.1 DIANA (acute kidney injury) N17.9 Acute respiratory acidosis J96.02 Pulmonary edema J81.0 Chronicity: acute Hypertension I10 COPD (chronic obstructive pulmonary disease) J44.9 DM2 (diabetes mellitus, type 2) E11.9 Gout M10.9 (1) Pulmonary edema Chronicity: acute Qualified Code(s): J81.0 - Acute pulmonary edema
[2022-07-10] MEDS ORDERED: CHLORASEPTIC 1.4% SOLN 180 ML BTL MT PRN (13:20)
[2022-07-10] MEDS ORDERED: MELOXICAM 7.5 MG TAB PO PRN (13:20)
[2022-07-10] MEDS: PRAVASTATIN SOD 20 MG TAB PO SCH (21:06)
[2022-07-11 05:56] LABS: Hematocrit (blood only) 37.5 % (34.1-44.9); Hemoglobin 12.2 g/dl (12.0-16.0); Mean Corpuscular Hemoglobin 28.3 pg (25.0-34.0); Mean Corpuscular Hgb Conc 32.5 g/dL (32.0-36.0); Mean Platelet Volume 9.3 fL (9.4-12.3); Platelet Count 238 K/uL (130-400); RDW Coefficient of Variation 14.4 % (11.5-14.5); RDW Standard Deviation 46.3 fL (36.4-46.3); Red Blood Count 4.31 M/uL (3.93-5.22); White Blood Count 9.59 K/ul (4.8-10.8)
[2022-07-11 06:14] LABS: BUN Creatinine Ratio 38.1 (10-20); Calcium 8.4 mg/dl (8.5-10.1); Creatinine Clr Calc Pharmacy 41.5 ml/min; Est GFR (African American) 43.6 ml/min; Est GFR (Non-African American) 37.6 ml/min; Magnesium 2.1 mg/dl (1.7-2.4); Potassium 4.6 mmol/L (3.5-5.1)
[2022-07-11] MEDS: LEVOTHYROXINE SODIUM 100 MCG TABLET PO SCH (06:47)
[2022-07-11] MEDS: LANTUS PER UNIT CHARGE SQ SCH (08:01)
[2022-07-11] MEDS: INSULIN ASPART PER UNIT SC SCH ×2 (08:01→12:05)
[2022-07-11] MEDS: dexAMETHasone 6 MG in SYRINGE 0 ML IV SCH (08:10)
[2022-07-11] MEDS: GABAPENTIN 100 MG CAP PO SCH (08:11)
[2022-07-11] MEDS: ENOXAPARIN INJ 40 MG/0.4 ML SYR SQ SCH (08:12)
[2022-07-11] MEDS: DULoxetine HCL 20 MG CAP PO SCH (08:13)
[2022-07-11] MEDS ORDERED: allopurinoL 300 MG TAB PO SCH (09:00)
--- NOTE | 2022-07-11 18:12 | Discharge Summary ---
Date of Service July 11, 2022 Admission HPI Per Admitting Provider Griselda Perez is a 81-year-old female with a past medical history significant for hypertension, hyperlipidemia, DM2, hypothyroidism, depression, CKD 3, gout, who is presenting today to be evaluated for cough. Her daughter, who she lives with tested positive for COVID-19 this week. Patient has developed a cough earlier this week and has had some chest pain associated with it. She only has chest pain with cough, never at rest or with exertion. She developed difficulty breathing today when ambulating home, therefore family called 911 for evaluation in the ED. she does have some lower extremity swelling. No complaints of chest pain, or shortness of breath at rest, palpitations, hemoptysis, abdominal pain, nausea, vomiting. On presentation to the ED, patient was hypertensive with highest BP recorded at 201/73, 93% on room air, so transitioned to nasal cannula now at 98% on 3 L NC. She is not tachycardic, afebrile, RR < 24. Labs are significant for elevated WBC 11.23, with left shift. VB.2 /30/. Renal function slightly off baseline, creatinine 1.43, BUN 27. Glucose is about 190. AST, ALT, alk phos all elevated 48/85/111 respectively. High sensitivity troponin 14.8. BNP 124. She is COVID-positive. Her CXR showed mild mild edema. Principal Diagnosis Covid-19 pneumonia Discharge Exam Constitutional WD/WN, vitals as above + morbidly obese Eyes EOM intact bilaterally; no conjunctival abnormality ENMT external ear and nose normal, oropharynx normal Neck trachea midline, no thyromegaly normal visual inspection Respiratory normal respiratory effort, lungs clear to auscultation no respiratory distress Cardiovascular RRR, no murmur, no edema Gastrointestinal (Abdomen) Inspection/Auscultation: abdomen normal to inspection; abdomen not distended Musculoskeletal no cyanosis or clubbing, extremities motor strength 5/5 Skin no rashes, warm and dry Neurologic moves all extremities and awake Psychiatric Orientation: alert, oriented to person and cooperative Discharge Data Allergies Allergy/AdvReac Type Severity Reaction Status Date / Time No Known Allergies Allergy Verified 07/08/22 19:32 Consultations 07/08/22 19:29 ED Decision to Admit Stat Hospital Course (1) COVID-19 virus infection: - Gradual development of productive cough, dyspnea on exertion fatigue, general weakness for the past 4 days. - Daughter, who lives with patient, tested positive for COVID this week. - Patient is unvaccinated, with history of COPD, diabetes, obesity putting her at risk for moderate/severe illness. - Placed patient on IV steroids, but defer on remdesivir given DIANA, borderline GFR at 34. - WBC mildly elevated, however Pro-Carlos Alberto normal and CXR without evidence of superimposed bacterial pneumonia, therefore held off on antibiotics. Cultures negative on discharge. -> Improved cough, shortness of breath, and oxygenation. Did not need O2 on 2- step on day of discharge. Given resolution of symptoms, do not feel continued steroids will benefit a patient with diabetes. (2) DIANA (acute kidney injury): Creatinine 1.43, only have 1 prior lab value to go off of but was 1.1 earlier this year. - Likely a combination of taking regular Advil and meloxicam for symptomatic management of COVID-19 infection, as well as decreased oral intake over the past day or so. - Monitor -> Down to 1.35 on discharge. Encouraged to avoid multiple NSAIDs on discharge. (3) Acute respiratory acidosis: - pH 7.29, CO2 57, COVID-19 infection. - Continue home inhalers with scheduled neb treatments, flutter valve, as well as steroids for hypoxia due to COVID-19. - As above (4) Pulmonary edema: No history of heart failure per chart review, BNP mildly elevated 124 but with lower extremity edema and pulmonary edema on CXR. - 40 mg IV Lasix given in ED. - Echo on 07/19 with EF 60-65%, mild LVH. -> DO NOT think patient has/had CHF. I think the "pulmonary edema" was likely Covid pneumonia. Deferred any further Lasix and patient had no signs/symptoms of CHF on discharge. (5) Hypertension: BP is 125/65 today. - Hold home valsartan-HCTZ x 1 day for mild DIANA. Resume on discharge. (6) COPD (chronic obstructive pulmonary disease): - Continue home inhalers with scheduled neb treatment. - Steroids, as above for COVID-19 infection. - Quit smoking 20 years ago. (7) DM2 (diabetes mellitus, type 2): A1c was 8.3%. - Held oral medications, placed on weight-based/accounting for steroids basal/bolus insulin. - Resume home meds on discharge. (8) Gout: - Continue allopurinol. Plan - SCDs, Lovenox for VTE ppx. Total Time Total Time Spent Total Time Spent (In Minutes): 35 Discharge Plan Discharge Items Patient Disposition: Home - Self-Care Reason For Visit: COVID Discharge Diagnosis: Covid-19 pneumonia Activity: Resume your previous activity Non-emergency contact: Primary Care Provider Call non-emergency contact if: your symptoms worsen Follow-up/Referrals: Marilin Joshua PA-C [Primary Care Provider] - Diet: Carb Consistent or DM2 and Heart Healthy Addtl Attending Provider Instructions: Ms. Perez, You were admitted with Covid pneumonia. Luckily, you are feeling better now. You were tested for any oxygen need, and we are arranging that if needed. Your labs look good and you are ready to be discharged from the hospital. Given you had severe enough symptoms to be hospitalized, you should maintain your isolation at home until 07/15/2022 (10 days from symptom onset). After that time, you can be around other people and are very unlikely to spread Covid to others. You are on a lot of NSAID medications (Advil (naproxen), ibuprofen, & meloxicam). This can be hard on your kidneys, so I do not recommend you take any of these together. Please follow up with your PCP to check on your kidney function again in 1-2 weeks. Pending Studies at Discharge: No Stand-Alone Forms: [facility] Smoking Cessation Medications and DC Order Prescriptions: Continued glipizide 5 mg tablet extended release 24 hr 5 mg PO BIDM levothyroxine 100 mcg tablet 100 mcg PO QAM pravastatin 20 mg tablet 20 mg PO HS gabapentin 100 mg capsule 100 mg PO BID albuterol sulfate 90 mcg/actuation HFA aerosol inhaler 1 - 2 puff INHALATION DAILY PRN (Reason: Shortness Of Breath Or Wheezing) duloxetine 20 mg capsule,delayed release(DR/EC) 20 mg PO QAM valsartan-hydrochlorothiazide 320-12.5 mg tablet 1 tab PO QAM Victoza 3-Winston 0.6 mg/0.1 mL (18 mg/3 mL) pen injector 0.9 mg SUBCUT HS sennosides [Vegetable Laxative] 8.6 mg Tablet 8.6 mg PO DAILY PRN (Reason: Constipation) meloxicam 15 mg tablet 7.5 mg PO BID PRN (Reason: Pain) melatonin 3 mg Tablet 3 mg PO HS PRN (Reason: Sleep) meclizine 25 mg tablet 25 mg PO DIRECTED PRN (Reason: Dizziness) allopurinol 300 mg tablet 150 mg PO QAM ibuprofen 600 mg tablet 600 mg PO Q8H PRN (Reason: Pain) Advil Dual Action 125-250 mg Tablet 2 tab PO Q8H PRN (Reason: Pain) Discharge Orders: Discharge Order (Routine); Ordered 07/11/22 Ordered By: gJ Barton/Other Patient Handouts: Managing Type 2 Diabetes Admission Data Admit Date/Time: 07/08/22 19:46 Attending Provider: Jg Luke Admit Provider: Fernando Reddy Primary Care Provider: Marilin Joshua Other Providers: Fernando Reddy Other Interventions: Discharge Summary Assessment (RN) Last Done: 07/11/22 13:08 Coding Level of Care Code D/C DAY MANAGEMENT >30 MINS Diagnoses COVID-19 virus infection U07.1 DIANA (acute kidney injury) N17.9 Acute respiratory acidosis J96.02 Pulmonary edema J81.0 Chronicity: acute Hypertension I10 COPD (chronic obstructive pulmonary disease) J44.9 DM2 (diabetes mellitus, type 2) E11.9 Gout M10.9
== END 2022-07-11 13:30 | disposition home or self-care (01) | DRG 177 ==
LOC: ED 17:27 → SUATTDRO 19:46 → 2S 19:46

== ENCOUNTER 2023-09-13 16:06 | Observation (INO) ==
[2023-09-13 16:30] LABS: Basophils # (auto) 0.03 K/uL (0.00-0.20); Basophils % (auto) 0.3 %; Eosinophils % (auto) 2.1 %; Hematocrit (blood only) 39.3 % (37.0-47.0); Hemoglobin 12.7 g/dl (12.0-16.0); Immature Granulocytes # (auto) 0.03 K/uL (0.01-0.20); Immature Granulocytes % (auto) 0.3 %; Lymphocytes # (auto) 1.44 K/uL (1.20-3.40); Lymphocytes % (auto) 14.8 %; Mean Corpuscular Hemoglobin 29.1 pg (25.0-34.0); Mean Corpuscular Hgb Conc 32.3 g/dL (32.0-36.0); Mean Corpuscular Volume 89.9 fL (80.0-100.0); Monocytes # (auto) 0.72 K/uL (0.11-0.59); Monocytes % (auto) 7.4 %; Neutrophils # (auto) 7.31 K/uL (1.40-6.50); Neutrophils % (auto) 75.1 %; Platelet Count 212 K/uL (130-400); RDW Coefficient of Variation 13.9 % (11.5-14.5); RDW Standard Deviation 45.6 fL (36.4-46.3); Red Blood Count 4.37 M/uL (4.20-5.40); White Blood Count 9.73 K/ul (4.8-10.8)
[2023-09-13 16:48] LABS: Alanine Aminotransferase 15 U/L (7-52); Albumin Globulin Ratio 1.2 (0.9-2); Albumin Level 3.9 gm/dl (3.4-5.0); Alkaline Phosphatase 65 U/L (34-104); Anion Gap 6 (3-11); Aspartate Aminotransferase 14 U/L (13-39); BUN Creatinine Ratio 18.2 (10-20); Bilirubin,Total 0.4 mg/dl (0.2-1.0); Blood Urea Nitrogen 22 mg/dl (6-23); Calcium 8.9 mg/dl (8.6-10.3); Carbon Dioxide 27 mmol/L (21-32); Chloride 107 mmol/L (98-107); Est GFR (African American) 48.6 ml/min; Est GFR (Non-African American) 41.9 ml/min; Globulin 3.3 gm/dl (2.5-4.0); Glucose 124 mg/dl (70-99(Fasting)); Potassium 4.6 mmol/L (3.5-5.1); Sodium 140 mmol/L (136-145); Total Protein 7.2 gm/dl (6.0-8.3)
--- NOTE | 2023-09-13 17:22 | Emergency Department Note ---
Impression & Plan Pain of right sacroiliac joint, Acute hip pain, Ambulatory dysfunction ED Provider Note NAME: GARRET VALDEZ AGE: 83 SEX: F : 1940 ARRIVES VIA: Ambulance INFORMANT: Patient, ED PROVIDER(S): Sukh Vargas MD CHIEF COMPLAINT: Hip pain MEDICAL DECISION MAKING: Patient presents due to concern for back and hip pain but currently hip pain as the patient has had chronic back pain but states that this is tolerable. IV was established blood was obtained patient did have plain films completed of the hip femur and knee. Patient did receive IV morphine Tylenol and lidocaine patch. Patient's blood work shows a normal white count H&H and platelet count. Kidney function creatinine 1.2. Electrolytes grossly unremarkable. Patient's plain x-rays unremarkable. The patient did get up and walk with a roller walker which she typically uses at home but still has significant pain as the patient would prefer to stay inpatient which nothing is unreasonable for possible PT and/or OT consultation and additional imaging. I did speak with the inpatient hospital service Dr. Vallejo and the patient was admitted to the medicine service pending CAT scans of the hip pelvis and femur. Discussion w/ other healthcare providers: None Prior /Outside records reviewed: None Differential diagnosis: Fracture, sprain, strain, subluxation, dislocation, contusion, ligamentous injury, neurovascular, as well as other etiologies were considered. Diagnostics, as interpreted by me: ECG: None Cardiac monitoring: An order was placed for continuous cardiac monitoring. The monitor shows a rate of 62 with sinus rhythm. Patient was placed on pulse oximetry Medical decision rules: None Imaging studies: I informally interpreted the patient's hip and pelvis x-ray which does not show obvious fracture or dislocation with formal report to follow. I informally interpreted the patient's femur x-ray which does not show obvious fracture or dislocation with formal report to follow HPI: Patient presents due to concern for hip pain. The patient states that she was making her bed about a month ago when she seemed to do something that caused her to have some associated hip discomfort. Patient states that over the last month it has gotten progressively worse without improvement in symptoms even with at home management care. Patient does suffer from chronic back pain is unsure whether or not this may be related. Patient states that she does have a burning feeling within the thigh that feels similar to when she had a prior history of gout. Patient denies any significant swelling falls or trauma no overuse or injury that she can report. The patient's daughter also provides the same history. Patient denies any chest pains or shortness of breath no leg swelling PAST MEDICAL HISTORY: See Below PAST SURGICAL HISTORY: See Below SOCIAL HISTORY: See Below HOME MEDICATIONS: See Below ALLERGIES: See Below VITALS: See Below PHYSICAL EXAMINATION: GENERAL: NAD, non-toxic. EYE EXAM: Normal conjunctiva. PERRL, no anisocoria and EOM's grossly intact w/o pain. OROPHARYNX: Moist mucus membranes, grossly normal dentition. NECK: Supple, no nuchal rigidity, no adenopathy, non-tender. No signs of meningismus. FROM of the neck with good chin to chest and neck extension. No stridor. LUNGS: Clear to auscultation. Normal chest wall mechanics. HEART: NSR, no MRG. ABDOMEN: Abdomen soft, non-tender, no masses, no rebound or guarding. BACK: No CVA TTP. SKIN: No rashes and no bruising. UPPER EXTREMITIES: Upper extremities are grossly normal. LOWER EXTREMITIES: Pain located over the lateral hip and proximal thigh without obvious overlying skin changes. NEURO EXAM: A&O x3, cranial nerves II-XII grossly intact, normal speech, moves all 4 extremities. Past Med/Surg History Medical History Hx of gout Arthritis Diabetes mellitus, type 2 Hypothyroidism Depression Hx of vertigo Hypertension Hyperlipidemia History of COVID-14 July 2022>resolved Tinnitus of right ear Sensorineural hearing loss (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 Surgical History H/O arthroscopy of knee left History of cholecystectomy History of tooth extraction History of tonsillectomy History of cataract surgery RT Family History Other No family history of adverse response to anesthesia Social History Smoking Status: Never smoker Second Hand Exposure: No; Do You Dip or Chew Tobacco: No; Hx Alcohol Use: No Hx Substance Use: No Preferred Language: Montenegrin Communication Ability: [facility] Analysis Internship Required: No Beliefs That Will Affect Care: None Current Living Situation: Alone Feels Safe at Home: Yes Assistive Devices: Cane and Walker Allergies Allergies Allergy/AdvReac Type Severity Reaction Status Date / Time No Known Allergies Allergy Verified 09/13/23 17:20 Home Meds Home Medications Medication Instructions Recorded Confirmed albuterol sulfate 90 mcg/actuation 1 - 2 puff inhalation DAILY PRN 12/17/21 09/13/23 aerosol inhaler Shortness Of Breath Or Wheezing duloxetine 20 mg capsule,delayed 20 mg PO QAM 12/17/21 09/13/23 release gabapentin 100 mg capsule 0 mg PO BID 12/17/21 09/13/23 glipizide 5 mg tablet, extended 5 mg PO BIDM 12/17/21 09/13/23 release 24 hr levothyroxine 100 mcg tablet 100 mcg PO QAM 12/17/21 09/13/23 liraglutide 0.6 mg/0.1 mL (18 mg/3 0.9 mg subcut HS 12/17/21 09/13/23 mL) subcutaneous pen injector (Quiretoza 3-Winston) valsartan 320 1 tab PO QAM 12/17/21 09/13/23 mg-hydrochlorothiazide 12.5 mg tablet allopurinol 300 mg tablet 150 mg PO QAM 07/08/22 09/13/23 cholecalciferol (vitamin D3) 125 125 mcg PO QAM 03/14/23 09/13/23 mcg (5,000 unit) tablet (Vitamin D3) cyanocobalamin (vitamin B-12) 5,000 mcg PO QAM 03/14/23 09/13/23 5,000 mcg capsule Previous Rx's Medication Instructions Recorded prednisone 10 mg tablet See Rx Instructions .Route 09/14/23 .COMPLEX #12 tabs tramadol 50 mg tablet 50 mg PO Q4H PRN moderate pain #10 09/14/23 tabs Results & Data (ED) Vital Signs Vital Signs - 24 hr 09/13/23 16:10 Temperature 36.5 C Temperature Source Temporal Artery Scan Pulse Rate 67 Respiratory Rate 20 Respiratory Effort / Characteristics Non-Labored Spontaneous Respiratory Depth Normal Blood Pressure 204/85 H Blood Pressure Mean 124 Pulse Oximetry 97 Oxygen Delivery Method Room Air Sepsis Recent Fever Within 48 Hours No Sepsis New/Unexplained Change in Mental Status No Sepsis Action Taken by Nursing No Action Required Home Medications Current Medication List: was personally reviewed by me Laboratory Data Attestation: I reviewed the patient's lab results. 09/15/23 05:55 09/15/23 05:55 Lab Results 09/13/23 09/13/23 Range/Units 16:17 22:34 WBC 9.73 (4.8-10.8) K/ul RBC 4.37 (4.20-5.40) M/uL Hgb 12.7 (12.0-16.0) g/dl Hct 39.3 (37.0-47.0) % MCV 89.9 (80.0-100.0) fL MCH 29.1 (25.0-34.0) pg MCHC 32.3 (32.0-36.0) g/dL RDW Std Deviation 45.6 (36.4-46.3) fL RDW Coeff of Gilberto 13.9 (11.5-14.5) % Plt Count 212 (130-400) K/uL MPV 9.0 L (9.4-12.4) fL Immature Gran % (Auto) 0.3 % Neut % (Auto) 75.1 % Lymph % (Auto) 14.8 % [place] % (Auto) 7.4 % Eos % (Auto) 2.1 % Baso % (Auto) 0.3 % Neut # (Auto) 7.31 H (1.40-6.50) K/uL Lymph # (Auto) 1.44 (1.20-3.40) K/uL [place] # (Auto) 0.72 H (0.11-0.59) K/uL Eos # (Auto) 0.20 (0.00-0.50) K/uL Baso # (Auto) 0.03 (0.00-0.20) K/uL Immature Gran # (Auto) 0.03 (0.01-0.20) K/uL Sodium 140 (136-145) mmol/L Potassium 4.6 (3.5-5.1) mmol/L Chloride 107 (98-107) mmol/L Carbon Dioxide 27 (21-32) mmol/L Anion Gap 6 (3-11) BUN 22 (6-23) mg/dl Creatinine 1.21 H (0.6-1.2) mg/dl Est Cr Clr Drug Dosing Not Reportable Est GFR ( Amer) 48.6 ml/min Est GFR (Non-Af Amer) 41.9 ml/min BUN/Creatinine Ratio 18.2 (10-20) Glucose 124 H (70-99(Fasting)) mg/dl POC Glucose 269 H (70-99) mg/dl Uric Acid 5.1 (2.6-7.2) mg/dl Calcium 8.9 (8.6-10.3) mg/dl Total Bilirubin 0.4 (0.2-1.0) mg/dl AST 14 (13-39) U/L ALT 15 (7-52) U/L Alkaline Phosphatase 65 (34-104) U/L Total Protein 7.2 (6.0-8.3) gm/dl Albumin 3.9 (3.4-5.0) gm/dl Globulin 3.3 (2.5-4.0) gm/dl Albumin/Globulin Ratio 1.2 (0.9-2) Administered Medications Discontinued Medications Acetaminophen (Acetaminophen 500 Mg Tab) 1,000 mg PO NOW STA Stop: 09/13/23 17:45 Last Admin: 09/13/23 18:17 Dose: 1,000 mg Documented By: GRETCHEN Acetaminophen (Acetaminophen 325 Mg Tab) 650 mg PO Q4H PRN PRN Reason: Pain or Fever Stop: 10/14/23 00:17 Last Admin: 09/14/23 20:08 Dose: 650 mg Documented By: STEPHEN Allopurinol (Allopurinol 300 Mg Tab) [address] [facility] Stop: 10/14/23 08:59 Last Admin: 09/15/23 09:36 Dose: 150 mg Documented By: Admin: 09/14/23 09:37 Dose: 150 mg Documented By: RICKY Cyanocobalamin (Cyanocobalamin (B-12) 2,500 Mcg Tablet) 5,[address] [facility] Stop: 10/14/23 08:59 Last Admin: 09/15/23 09:37 Dose: 5,000 mcg Documented By: Admin: 09/14/23 09:36 Dose: 5,000 mcg Documented By: RICKY Duloxetine HCl (Duloxetine Hcl 20 Mg Cap) [address] [facility] Stop: 10/14/23 08:59 Last Admin: 09/15/23 09:36 Dose: 20 mg Documented By: Admin: 09/14/23 09:38 Dose: 20 mg Documented By: RICKY Gabapentin (Gabapentin 100 Mg Cap) 200 mg PO NOW STA Stop: 09/13/23 22:40 Last Admin: 09/14/23 01:21 Dose: 200 mg Documented By: JUAN J Gabapentin (Gabapentin 100 Mg Cap) [facility] Stop: 10/14/23 08:59 Last Admin: 09/15/23 09:35 Dose: 100 mg Documented By: Admin: 09/14/23 09:35 Dose: 100 mg Documented By: RICKY Gabapentin (Gabapentin 100 Mg Cap) 200 mg PO HS PATRICIO Stop: 10/14/23 20:59 Last Admin: 09/14/23 20:59 Dose: 200 mg Documented By: STEPHEN Heparin Sodium (Porcine) (Heparin Sod 5,000 Unit/0.5 Ml Vial) 7,500 units SQ Q12 PATRICIO Stop: 10/14/23 08:59 Last Admin: 09/15/23 08:10 Dose: 7,500 units Documented By: Admin: 09/14/23 20:59 Dose: 7,500 units Documented By: Admin: 09/14/23 09:36 Dose: 7,500 units Documented By: RICKY Hydrochlorothiazide (Hydrochlorothiazide 25 Mg Tab) 12.[address] [facility] Stop: 10/14/23 08:59 Last Admin: 09/15/23 08:05 Dose: 12.5 mg Documented By: Admin: 09/14/23 12:18 Dose: 12.5 mg Documented By: RICKY Sodium Chloride (Nss) 1,000 mls @ 80 mls/hr IV .[id number] PATRICIO Stop: 09/14/23 11:14 Last Infusion: 09/14/23 14:45 Dose: Infused Documented By: Admin: 09/14/23 02:07 Dose: 80 mls/hr Documented By: JUAN J Methylprednisolone 40 mg/ (Syringe) 0.64 mls @ 1.5 mls/min IV Q12H PENDING SALE TO [facility] Stop: 10/14/23 07:59 Last Admin: 09/14/23 14:23 Dose: Not Given Documented By: RICKY Methylprednisolone 40 mg/ (Syringe) 0.64 mls @ 1.5 mls/min IV DAILY PATRICIO Stop: 10/15/23 08:59 Last Admin: 09/15/23 08:07 Dose: 1.5 mls/min Documented By: PAULA Insulin Aspart (Insulin Aspart Per Unit Charge) 0 units SC ACHS PATRICIO Stop: 10/14/23 01:29 Last Admin: 09/15/23 12:54 Dose: 9 units Documented By: PAULA Co-signed By: RICKY Admin: 09/15/23 09:39 Dose: 4 units Documented By: PAULA Co-signed By: RICKY Admin: 09/14/23 20:56 Dose: 2 units Documented By: STEPHEN Co-signed By: JAMIE Admin: 09/14/23 18:09 Dose: 6 units Documented By: RICKY Co-signed By: REBECCA Admin: 09/14/23 13:30 Dose: 9 units Documented By: RICKY Co-signed By: DELMER Admin: 09/14/23 09:43 Dose: 8 units Documented By: RICKY Co-signed By: REBECCA Admin: 09/14/23 03:27 Dose: 9 units Documented By: JUAN J Co-signed By: STEPHEN Ketorolac Tromethamine (Ketorolac Tromethamine 15 Mg/Ml Vial) 10 mg IV NOW ONE Stop: 09/13/23 22:38 Last Admin: 09/14/23 01:44 Dose: 10 mg Documented By: JUAN J Levothyroxine Sodium (Levothyroxine Sodium 100 Mcg Tablet) 100 mcg PO DAILYBB PENDING SALE TO [facility] Stop: 10/14/23 06:29 Last Admin: 09/15/23 06:18 Dose: 100 mcg Documented By: Admin: 09/14/23 05:22 Dose: 100 mcg Documented By: JUAN J Methylprednisolone (Methylprednisolone 125 Mg/2 Ml Vial) 125 mg IV NOW STA Stop: 09/13/23 17:46 Last Admin: 09/13/23 18:17 Dose: 125 mg Documented By: COUNCILPERSON Morphine Sulfate (Morphine Sulfate 4 Mg/Ml 1 Ml Carp\Vial) 3 mg IV NOW STA Stop: 09/13/23 17:45 Last Admin: 09/13/23 18:17 Dose: 3 mg Documented By: COUNCILPERSON Morphine Sulfate (Morphine Sulfate 4 Mg/Ml 1 Ml Carp\Vial) 3 mg IV NOW STA Stop: 09/13/23 21:26 Last Admin: 09/13/23 21:38 Dose: 3 mg Documented By: COUNCILPERSON Tramadol HCl (Tramadol Hcl 50 Mg Tablet) 50 mg PO Q4H PRN PRN Reason: Moderate Pain (Scale 4, 5, 6) Stop: 10/13/23 22:45 Last Admin: 09/15/23 06:20 Dose: 50 mg Documented By: STEPHEN Valsartan (Valsartan 80 Mg Tab) 320 [facility] [place] Stop: 10/14/23 08:59 Last Admin: 09/15/23 08:06 Dose: 320 mg Documented By: Admin: 09/14/23 12:19 Dose: 320 mg Documented By: RICKY Vitamin D (Cholecalciferol 5,000 Units 125 Mcg Tab) 5,[address] [facility] Stop: 10/14/23 08:59 Last Admin: 09/15/23 09:37 Dose: 5,000 units Documented By: Admin: 09/14/23 09:35 Dose: 5,000 units Documented By: TLAzucena Imaging Data Radiologist's Impression: Femur X-Ray 09/13/23 17:44 XR hip RT 2V w pelvis, XR femur RT 2V routine CLINICAL HISTORY: thigh/hip/knee pain TECHNIQUE: 2 views of the right hip and single frontal view of the pelvis were obtained. 2 views of the right femur were obtained. Comparison: None available at the time of this dictation. FINDINGS: There is no evidence of an acute fracture. Degenerative changes are seen in the spine and knee joints. Vascular calcifications are noted. IMPRESSION: Degenerative changes without evidence of acute abnormality. ACT 112: Negative or not required by law. Electronically signed by: Ford Winters M.D. 09/13/2023 6:30 PM Hip/Pelvis X-Ray 09/13/23 17:44 XR hip RT 2V w pelvis, XR femur RT 2V routine CLINICAL HISTORY: thigh/hip/knee pain TECHNIQUE: 2 views of the right hip and single frontal view of the pelvis were obtained. 2 views of the right femur were obtained. Comparison: None available at the time of this dictation. FINDINGS: There is no evidence of an acute fracture. Degenerative changes are seen in the spine and knee joints. Vascular calcifications are noted. IMPRESSION: Degenerative changes without evidence of acute abnormality. ACT 112: Negative or not required by law. Electronically signed by: Ford Winters M.D. 09/13/2023 6:[address] 09/13/23 22:22 Exam(s): CT RIGHT HIP Without Contrast EXAM: CT Right Lower Extremity Without Intravenous Contrast, Hip CLINICAL HISTORY: Reason for exam: pain. TECHNIQUE: Axial computed tomography images of the right hip without intravenous contrast. Automated exposure control was utilized for the study. A dose lowering technique was utilized adhering to the principles of ALARA. COMPARISON: No relevant prior studies available. FINDINGS: Bones/joints: Mild superolateral joint space narrowing. Osseous demineralization. Intact right superior and inferior pubic rami. No fracture or dislocation. Soft tissues: Unremarkable. Other findings: If there is concern for internal derangement, MRI recommended. IMPRESSION: No fracture or dislocation. If there is concern for internal derangement, MRI recommended. Electronically signed by: Oscar Soliz MD 09/14/23 00:[address] 09/13/23 22:22 Exam(s): CT L SPINE EXAM: CT Lumbar Spine Without Intravenous Contrast CLINICAL HISTORY: Reason for exam: pain. TECHNIQUE: Axial computed tomography images of the lumbar spine without intravenous contrast. Automated exposure control was utilized for the study. A dose lowering technique was utilized adhering to the principles of ALARA. COMPARISON: No relevant prior studies available. FINDINGS: Vertebrae: Unremarkable. No acute fracture. There is mild wedging of the L1 and L2 segments, which is likely physiologic. Discs/spinal canal/neural foramina: Moderate to advanced disc degeneration at L2-3, L3-4, L4-5 and L5-S1. No acute findings. There is a severe spinal canal stenosis at L2-3. Soft tissues: Hepatic steatosis. IMPRESSION: No evidence of acute lumbar spine pathology. Electronically signed by: Luz Jimenes MD 09/14/23 01:[address] 09/13/23 22:22 Exam(s): CT PELVIS Without Contrast EXAM: CT Pelvis Without Intravenous Contrast CLINICAL HISTORY: Reason for exam: pain. TECHNIQUE: Axial computed tomography images of the pelvis without intravenous contrast. Automated exposure control was utilized for the study. A dose lowering technique was utilized adhering to the principles of ALARA. COMPARISON: No relevant prior studies available. FINDINGS: No femoral neck or intertrochanteric hip fracture. No pelvic fracture. Intact bilateral superior and inferior pubic rami. Degenerative changes of the bilateral hip joints, pubic symphysis, and sacroiliac joints. Diffuse osseous demineralization. Lumbar spondylosis and disc space narrowing. Calcified uterine fibroids. Diverticulosis. Ventral pelvic wall hernia. Intact sacrum. IMPRESSION: No hip or pelvic fracture. Electronically signed by: Oscar Soliz MD 09/14/23 01:12 AM Discharge Plan Visit Data Chief Complaint: Back Injury/Pain Stated Complaint: LOW BACK PAIN ED Provider: Sukh Vargas Discharge Problem: Pain of right sacroiliac joint, Acute hip pain, Ambulatory dysfunction Patient Disposition: Admitted As Inpatient Discharge Instructions Interventions: ED Discharge Assessment Last Done: 09/13/23 23:39 Discharge Problem: Acute hip pain Qualifiers: Laterality: right Qualified Code(s): M25.551 - Pain in right hip
[2023-09-13] MEDS ORDERED: MoRPHine SULFATE 4 MG/ML 1 ML CARP\\VIAL IV STA ×2 (17:44→21:25)
[2023-09-13] MEDS ORDERED: ACETAMINOPHEN 500 MG TAB PO STA (17:44)
[2023-09-13] MEDS ORDERED: methylPREDNISolone 125 MG/2 ML VIAL IV STA (17:45)
--- NOTE | 2023-09-13 18:31 | XRay Report ---
XR hip RT 2V w pelvis, XR femur RT 2V routine CLINICAL HISTORY: thigh/hip/knee pain TECHNIQUE: 2 views of the right hip and single frontal view of the pelvis were obtained. 2 views of t he right femur were obtained. Comparison: None available at the time of this dictation. FINDINGS: There is no evidence of an acute fracture. Degenerative changes are seen in the spine and knee joints . Vascular calcifications are noted. IMPRESSION: Degenerative changes without evidence of acute abnormality. ACT 112: Negative or not required by law. Electronically signed by: Ford Winters M.D. 09/13/2023 6:30 PM
[2023-09-13] MEDS ORDERED: KETOROLAC TROMETHAMINE 15 MG/ML VIAL IV ONE (22:37)
[2023-09-13] MEDS ORDERED: GABAPENTIN 100 MG CAP PO STA (22:39)
[2023-09-13] MEDS ORDERED: SODIUM CHLORIDE 0.9% 1,000 ML IV SCH (22:45)
[2023-09-13] MEDS ORDERED: MoRPHine SULFATE 2 MG/ML CARP IV PRN (22:46)
[2023-09-13] MEDS ORDERED: traMADol HCL 50 MG TABLET PO PRN (22:46)
--- NOTE | 2023-09-13 22:51 | History & Physical Report ---
Date of Service September 13, 2023 Assessment & Plan (1) Pain of right sacroiliac joint: (2) Gout: (3) DM2 (diabetes mellitus, type 2): (4) COPD (chronic obstructive pulmonary disease): (5) Hypertension: Plan Right sacroiliac joint pain- Initial x-rays of hip/pelvis and femur were negative CT scans were then performed of lumbar spine, pelvis and hips, all of which were negative for occult fracture Symptoms are more suggestive of a right sacroiliitis She did receive methylprednisolone 125 mg IV in the ED and Toradol [address] on methylprednisolone 40 mg IV every 12 hours Consult PT/OT Does not appear to be a muscle spasm involvement, although a trial of baclofen could possibly be evaluated for symptoms are persistent Assessment for asymmetric leg lengths may be indicated Acetaminophen 650 mg by mouth every 6 hours as needed for mild pain or fever Tramadol 50 mg by mouth every 4 hours as needed for moderate pain Morphine sulfate 1 mg IV every 4 hours as needed for severe pain. Avoid stronger doses of morphine as patient did become hypoxic while in the ED Diabetes mellitus- Hold glipizide and Victoza Place on Accu-Cheks with NovoLog SSI Monitor closely while receiving methylprednisolone IV Hypertension/CKD stage III- Continue losartan-HCTZ Hold diclofenac Did receive Toradol x 1 dose to be able to get through CT studies NSS at 80 mL/h x 1 L Follow serial renal function panel and magnesium levels History of Present Illness Chief Complaint: The patient presents to the emergency department with complaint of severe pain in her right superior buttock area, making it difficult to ambulate. Primary Care Provider: Marilin Joshua PA-C The patient is a 83-year-old female with past medical history including gout, diabetes mellitus type 2, COPD, DIANA, hypertension, pulmonary edema, SNHL and elevated troponin levels. She presents to the emergency department with acute onset of right sacroiliac area pain, affecting her ability to ambulate. She denies any recent trauma, travels or sick exposures. She reports that the symptoms felt similar to previous gout attacks and other areas of her body. The patient was given methylprednisolone 125 mg IV and morphine sulfate 3 mg IV x 2 from the ED, and referred for evaluation for admission due to intractable pain and inability to ambulate Allergies Allergy/AdvReac Type Severity Reaction Status Date / Time No Known Allergies Allergy Verified 09/13/23 17:20 Home Medications Medication Instructions Recorded Confirmed Type albuterol sulfate 90 mcg/actuation 1 - 2 puff inhalation DAILY PRN 12/17/21 09/13/23 History aerosol inhaler Shortness Of Breath Or Wheezing duloxetine 20 mg capsule,delayed 20 mg PO QAM 12/17/21 09/13/23 History release gabapentin 100 mg capsule 0 mg PO BID 12/17/21 09/13/23 History glipizide 5 mg tablet, extended 5 mg PO BIDM 12/17/21 09/13/23 History release 24 hr levothyroxine 100 mcg tablet 100 mcg PO QAM 12/17/21 09/13/23 History liraglutide 0.6 mg/0.1 mL (18 mg/3 0.9 mg subcut HS 12/17/21 09/13/23 History mL) subcutaneous pen injector (Victoza 3-Winston) valsartan 320 1 tab PO QAM 12/17/21 09/13/23 History mg-hydrochlorothiazide 12.5 mg tablet allopurinol 300 mg tablet 150 mg PO QAM 07/08/22 09/13/23 History cholecalciferol (vitamin D3) 125 125 mcg PO QAM 03/14/23 09/13/23 History mcg (5,000 unit) tablet (Vitamin D3) cyanocobalamin (vitamin B-12) 5,000 mcg PO QAM 03/14/23 09/13/23 History 5,000 mcg capsule acetaminophen 500 mg tablet 1,500 mg PO DAILY PRN Pain 09/13/23 09/13/23 History diclofenac sodium 50 mg 50 mg PO BID 09/13/23 09/13/23 History tablet,delayed release Past Med/Surg History Medical History Arthritis Depression Diabetes mellitus, type 2 History of COVID-14 July 2022>resolved Hx of gout Hx of vertigo Hyperlipidemia Hypertension Hypothyroidism Sensorineural hearing loss (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 Tinnitus of right ear Surgical History H/O arthroscopy of knee left History of cataract surgery RT History of cholecystectomy History of tonsillectomy History of tooth extraction Family History Other No family history of adverse response to anesthesia Social History Smoking Status: Never smoker Second Hand Exposure: No; Do You Dip or Chew Tobacco: No; Tobacco Cessation Education Requested by Patient: No Hx Alcohol Use: No Hx Substance Use: No Preferred Language: Korean Communication Ability: [facility] [place] Required: No Beliefs That Will Affect Care: None Current Living Situation: Alone Other Information That Helps Us Care for You: No Feels Safe at Home: Yes Safety Concerns: Feels Safe At This Time Assistive Devices: Walker Review of Systems Review of Systems: The patient denies chest pain, palpitations, shortness of breath, dyspnea on exertion, cough, lower extremity swelling, sore throat, fevers, chills, sweats, weight change, fatigue, nausea, vomiting, diarrhea , constipation, abdominal pain, pelvic pain, blood in urine or stool, dysuria, urinary frequency or urgency, lightheadedness, dizziness, headache, memory loss, loss of consciousness, rash, abnormal bruising or bleeding, focal or generalized weakness, numbness or tingling in arms or legs, generalized arthralgias or myalgias, neck pain, or night sweats. The review of systems is otherwise negative other than for that already noted above, and at least 10 systems have been reviewed. Physical Exam Physical Exam: The patient is awake, alert and oriented 3, well developed and well nourished, normocephalic and atraumatic, lying in bed and in no acute distress. HEENT--PERRL, EOMI, mucous membranes and oropharynx normal. Neck--supple. No JVD. No bruits. Thyroid normal, trachea midline, no adenopathy. Heart--normal S1 and S2. No murmurs, rubs or gallops. Lungs--clear bilaterally, no respiratory distress, no paradoxical motion Extremities--no cyanosis or clubbing. No edema. Dermatologic--normal skin turgor, normal color, no abnormal lymph nodes, no rash. Neurologic--cranial nerves II through XII grossly intact. Rheumatologic--exam limited by body habitus and by right sacroiliac area pain Psychiatric--normal affect. Results & Data Results & Data Vital Signs (Past 12 Hours) Vital Signs Temp Pulse Resp BP Pulse Ox O2 Del Method 09/13/23 16:10 36.5 C 67 20 204/85 H 97 Room Air Laboratory Results Laboratory Results WBC 9.73 K/ul (4.8-10.8) 09/13/23 16:17 RBC 4.37 M/uL (4.20-5.40) 09/13/23 16:17 Hgb 12.7 g/dl (12.0-16.0) 09/13/23 16:17 Hct 39.3 % (37.0-47.0) 09/13/23 16:17 MCV 89.9 fL (80.0-100.0) 09/13/23 16:17 MCH 29.1 pg (25.0-34.0) 09/13/23 16:17 MCHC 32.3 g/dL (32.0-36.0) 09/13/23 16:17 RDW Std Deviation 45.6 fL (36.4-46.3) 09/13/23 16:17 RDW Coeff of Gilberto 13.9 % (11.5-14.5) 09/13/23 16:17 Plt Count 212 K/uL (130-400) 09/13/23 16:17 MPV 9.0 fL (9.4-12.4) L 09/13/23 16:17 Immature Gran % (Auto) 0.3 % 09/13/23 16:17 Neut % (Auto) 75.1 % 09/13/23 16:17 Lymph % (Auto) 14.8 % 09/13/23 16:17 [place] % (Auto) 7.4 % 09/13/23 16:17 Eos % (Auto) 2.1 % 09/13/23 16:17 Baso % (Auto) 0.3 % 09/13/23 16:17 Neut # (Auto) 7.31 K/uL (1.40-6.50) H 09/13/23 16:17 Lymph # (Auto) 1.44 K/uL (1.20-3.40) 09/13/23 16:17 [place] # (Auto) 0.72 K/uL (0.11-0.59) H 09/13/23 16:17 Eos # (Auto) 0.20 K/uL (0.00-0.50) 09/13/23 16:17 Baso # (Auto) 0.03 K/uL (0.00-0.20) 09/13/23 16:17 Immature Gran # (Auto) 0.03 K/uL (0.01-0.20) 09/13/23 16:17 Sodium 140 mmol/L (136-145) 09/13/23 16:17 Potassium 4.6 mmol/L (3.5-5.1) 09/13/23 16:17 Chloride 107 mmol/L (98-107) 09/13/23 16:17 Carbon Dioxide 27 mmol/L (21-32) 09/13/23 16:17 Anion Gap 6 (3-11) 09/13/23 16:17 BUN 22 mg/dl (6-23) 09/13/23 16:17 Creatinine 1.21 mg/dl (0.6-1.2) H 09/13/23 16:17 Est Cr Clr Drug Dosing Not Reportable 09/13/23 16:17 Est GFR ( Amer) 48.6 ml/min 09/13/23 16:17 Est GFR (Non-Af Amer) 41.9 ml/min 09/13/23 16:17 BUN/Creatinine Ratio 18.2 (10-20) 09/13/23 16:17 Glucose 124 mg/dl (70-99(Fasting)) H 09/13/23 16:17 POC Glucose 301 mg/dl (70-99) H* 09/14/23 03:06 Uric Acid 5.1 mg/dl (2.6-7.2) 09/13/23 16:17 Calcium 8.9 mg/dl (8.6-10.3) 09/13/23 16:17 Total Bilirubin 0.4 mg/dl (0.2-1.0) 09/13/23 16:17 AST 14 U/L (13-39) 09/13/23 16:17 ALT 15 U/L (7-52) 09/13/23 16:17 Alkaline Phosphatase 65 U/L (34-104) 09/13/23 16:17 Total Protein 7.2 gm/dl (6.0-8.3) 09/13/23 16:17 Albumin 3.9 gm/dl (3.4-5.0) 09/13/23 16:17 Globulin 3.3 gm/dl (2.5-4.0) 09/13/23 16:17 Albumin/Globulin Ratio 1.2 (0.9-2) 09/13/23 16:17 Impressions Femur X-Ray 09/13/23 17:44 XR hip RT 2V w pelvis, XR femur RT 2V routine CLINICAL HISTORY: thigh/hip/knee pain TECHNIQUE: 2 views of the right hip and single frontal view of the pelvis were obtained. 2 views of the right femur were obtained. Comparison: None available at the time of this dictation. FINDINGS: There is no evidence of an acute fracture. Degenerative changes are seen in the spine and knee joints. Vascular calcifications are noted. IMPRESSION: Degenerative changes without evidence of acute abnormality. ACT 112: Negative or not required by law. Electronically signed by: Ford Winters M.D. 09/13/2023 6:30 PM Hip/Pelvis X-Ray 09/13/23 17:44 XR hip RT 2V w pelvis, XR femur RT 2V routine CLINICAL HISTORY: thigh/hip/knee pain TECHNIQUE: 2 views of the right hip and single frontal view of the pelvis were obtained. 2 views of the right femur were obtained. Comparison: None available at the time of this dictation. FINDINGS: There is no evidence of an acute fracture. Degenerative changes are seen in the spine and knee joints. Vascular calcifications are noted. IMPRESSION: Degenerative changes without evidence of acute abnormality. ACT 112: Negative or not required by law. Electronically signed by: Ford Winters M.D. 09/13/2023 6:[address] 09/13/23 22:22 Exam(s): CT RIGHT HIP Without Contrast EXAM: CT Right Lower Extremity Without Intravenous Contrast, Hip CLINICAL HISTORY: Reason for exam: pain. TECHNIQUE: Axial computed tomography images of the right hip without intravenous contrast. Automated exposure control was utilized for the study. A dose lowering technique was utilized adhering to the principles of ALARA. COMPARISON: No relevant prior studies available. FINDINGS: Bones/joints: Mild superolateral joint space narrowing. Osseous demineralization. Intact right superior and inferior pubic rami. No fracture or dislocation. Soft tissues: Unremarkable. Other findings: If there is concern for internal derangement, MRI recommended. IMPRESSION: No fracture or dislocation. If there is concern for internal derangement, MRI recommended. Electronically signed by: Oscar Soliz MD 09/14/23 00:[address] 09/13/23 22:22 Exam(s): CT L SPINE EXAM: CT Lumbar Spine Without Intravenous Contrast CLINICAL HISTORY: Reason for exam: pain. TECHNIQUE: Axial computed tomography images of the lumbar spine without intravenous contrast. Automated exposure control was utilized for the study. A dose lowering technique was utilized adhering to the principles of ALARA. COMPARISON: No relevant prior studies available. FINDINGS: Vertebrae: Unremarkable. No acute fracture. There is mild wedging of the L1 and L2 segments, which is likely physiologic. Discs/spinal canal/neural foramina: Moderate to advanced disc degeneration at L2-3, L3-4, L4-5 and L5-S1. No acute findings. There is a severe spinal canal stenosis at L2-3. Soft tissues: Hepatic steatosis. IMPRESSION: No evidence of acute lumbar spine pathology. Electronically signed by: Luz Jimenes MD 09/14/23 01:[address] 09/13/23 22:22 Exam(s): CT PELVIS Without Contrast EXAM: CT Pelvis Without Intravenous Contrast CLINICAL HISTORY: Reason for exam: pain. TECHNIQUE: Axial computed tomography images of the pelvis without intravenous contrast. Automated exposure control was utilized for the study. A dose lowering technique was utilized adhering to the principles of ALARA. COMPARISON: No relevant prior studies available. FINDINGS: No femoral neck or intertrochanteric hip fracture. No pelvic fracture. Intact bilateral superior and inferior pubic rami. Degenerative changes of the bilateral hip joints, pubic symphysis, and sacroiliac joints. Diffuse osseous demineralization. Lumbar spondylosis and disc space narrowing. Calcified uterine fibroids. Diverticulosis. Ventral pelvic wall hernia. Intact sacrum. IMPRESSION: No hip or pelvic fracture. Electronically signed by: Oscar Soliz MD 09/14/23 01:12 AM Code Status & VTE Plan Code Status Full code VTE Prophylaxis Plan VTE Prophylaxis will be ordered: Yes PG Care Time/CCT Total # of Minutes Spent Total Time Spent with Patient: Total time spent is greater than 50% in coordination of care (as documented) at patient's floor/unit and/or counseling patient: Coding Level of Care Code 48748 INT INP/OBS CARE 3/75MIN Diagnoses Pain of right sacroiliac joint M53.3 Gout M10.9 DM2 (diabetes mellitus, type 2) E11.9 COPD (chronic obstructive pulmonary disease) J44.9 Hypertension I10
[2023-09-13] MEDS ORDERED: hydrALAZINE HCL 20 MG/ML VIAL IV PRN (22:52)
[2023-09-13 23:02] LABS: Uric Acid 5.1 mg/dl (2.6-7.2)
[2023-09-14] MEDS ORDERED: GLUCAGON FOR INJ 1 MG VIAL SQ PRN (00:18)
[2023-09-14] MEDS ORDERED: GLUCOSE 40% GEL 15 GM TUBE PO PRN (00:18)
[2023-09-14] MEDS ORDERED: ALBUTEROL HFA 8 GM INHALER INH PRN (00:18)
[2023-09-14] MEDS ORDERED: GLUCOSE 10 TAB/TUBE PO PRN (00:18)
[2023-09-14] MEDS ORDERED: DEXTROSE 50% 50 ML SYRINGE IV PRN (00:18)
[2023-09-14] MEDS ORDERED: ONDANSETRON INJ 2 MG/ML 2 ML VIAL IV PRN (00:18)
[2023-09-14] MEDS ORDERED: ACETAMINOPHEN 325 MG TAB PO PRN (00:18)
[2023-09-14] MEDS ORDERED: CARBOHYDRATES FOR HYPOGLYCEMIA PO PRN (00:18)
--- NOTE | 2023-09-14 00:39 | CT Scan Report ---
Exam(s): CT RIGHT HIP Without Contrast EXAM: CT Right Lower Extremity Without Intravenous Contrast, Hip CLINICAL HISTORY: Reason for exam: pain. TECHNIQUE: Axial computed tomography images of the right hip without intravenous contrast. Automated exposure control was utilized for the study. A dose lowering technique was utilized adhering to the principles of ALARA. COMPARISON: No relevant prior studies available. FINDINGS: Bones/joints: Mild superolateral joint space narrowing. Osseous demineralization. Intact right superior and inferior pubic rami. No fracture or dislocation. Soft tissues: Unremarkable. Other findings: If there is concern for internal derangement, MRI recommended. IMPRESSION: No fracture or dislocation. If there is concern for internal derangement, MRI recommended. Electronically signed by: Oscar Soliz MD 09/14/23 00:38 AM
--- NOTE | 2023-09-14 01:13 | CT Scan Report ---
Exam(s): CT PELVIS Without Contrast EXAM: CT Pelvis Without Intravenous Contrast CLINICAL HISTORY: Reason for exam: pain. TECHNIQUE: Axial computed tomography images of the pelvis without intravenous contrast. Automated exposure control was utilized for the study. A dose lowering technique was utilized adhering to the principles of ALARA. COMPARISON: No relevant prior studies available. FINDINGS: No femoral neck or intertrochanteric hip fracture. No pelvic fracture. Intact bilateral superior and inferior pubic rami. Degenerative changes of the bilateral hip joints, pubic symphysis, and sacroiliac joints. Diffuse osseous demineralization. Lumbar spondylosis and disc space narrowing. Calcified uterine fibroids. Diverticulosis. Ventral pelvic wall hernia. Intact sacrum. IMPRESSION: No hip or pelvic fracture. Electronically signed by: Oscar Soliz MD 09/14/23 01:12 AM
--- OUTSIDE RECORDS SUMMARY | 2023-09-14 01:53 | External Medical Summary | Continuity of Care Document ---
Author Name Unknown Organization [facility] [address] [id number] Address [address] [place] [address] [id number] Care Team Providers Care Activities Aide Name Role Phone DonatoMarilin guerrero Marti Primary Care Physician [phone] [id number] Date(s): 09/09/23 - 09/09/23 [facility] [address] [id number] [facility] [address] [place] [id number] Encounter Diagnosis Degenerative joint disease (DJD) of lumbar spine(Discharge Diagnosis) - 09/09/23 Neurologic gait dysfunction(Discharge Diagnosis) - 09/09/23 Low back pain radiating to right leg(Discharge Diagnosis) - 09/09/23 Discharge Disposition: Home or Self Care Attending Physician: MD Bo, Fredi Ramírez Allergies, Adverse Reactions, Alerts Substance Reaction Severity Status Nickel itchy/rash Active Assessment and Plan Extracted from: Title:Orthopaedics Office Visit Note Author:Danica paniagua DO, Ravin Date:09/09/23 1.Degenerative joint disea se (DJD) of lumbar spine We discussed with the patient several options. We encouraged her to follow-up with physical therapy. Given hergait dysfunction anddecreased mobilitywe will arrange physical therapy hopefullyto bevisit her at home. We discussedpossible started prednisone however she has hadhyperglycemia reactionsto this and declined at this time. She is currently taking diclofenac 25 mgtwice dailyand we increase this to 50 mg twice daily a new prescription was sent in. We will follow her back up in 1 month 2.Neurologic gait dysfunction See #1 3.Low back pain radiating to right leg See #1 Medications Albuterol (Eqv-Proventil HFA) 90 mcg/inh inhalation aerosol Start: 03/25/22 14:38:00 EDT, 2 puff, inhaled, q6h, Disp# 6.7 g, Refills: 5, PRN: shortness of breath, Pharmacy: [id number] Start Date: 03/25/22 Stop Date: 09/21/22 Status: Ordered allopurinol 300 mg oral tablet Start: 07/22/23 14:05:00 EDT, 0.5 tab, PO, Daily, Disp# 15 tab, Refills: 5, Note to Pharmacy: d/c allopurinol 100 mg, Pharmacy: [id number] Start Date: 07/22/23 Stop Date: 01/18/24 Status: Ordered BD needle Ultra-Fine III Mini Pen 31G x 5mm Start: 04/18/23 16:48:00 EDT, See Instructions, Disp# 100 each, Refills: 1, Use to inject Victoza once daily, Note to Pharmacy: ICD-10: E11.9, Pharmacy: [id number] Start Date: 04/18/23 Status: Ordered diclofenac sodium 50 mg oral delayed release tablet Start: 09/09/23 14:45:00 EST, 1 tab, PO, bid, Disp# 60 tab, Refills: 1, with food, as needed for pain, Pharmacy: [id number] Start Date: 09/09/23 Status: Ordered DULoxetine 20 mg oral delayed release capsule Start: 07/22/23 14:05:00 EDT, 1 cap, PO, Daily, Disp# 30 cap, Refills: 5, Pharmacy: [id number] Start Date: 07/22/23 Stop Date: 01/18/24 Status: Ordered Euflexxa 10 mg/mL intra-articular solution Start: 01/17/23 9:13:00 EDT, 20 mg =, intra-articular, q7days, Disp# 6 mL, Refills: 0, L KNEE DJD M17.12, Note to Pharmacy: 3 syringes for L knee. Please ship to physician's office: [address] [place] [address], [place] [address], Brand Medically N... Start Date: 01/17/23 Stop Date: 02/07/23 Status: Ordered gabapentin 100 mg oral capsule Start: 07/22/23 14:05:00 EDT, See Instructions, Disp# 60 cap, Refills: 5, TAKE 1 CAPSULE BY PO q AMand 2 cap PO qPM, Pharmacy: [id number] Start Date: 07/22/23 Status: Ordered glipiZIDE 5 mg oral tablet, extended release Start: 07/22/23 14:05:00 EDT, See Instructions, Disp# 60 tab, Refills: 5, TAKE 1 TABLET BY MOUTH TWICE DAILY, Pharmacy: [id number] Start Date: 07/22/23 Status: Ordered hydroCHLOROthiazide-valsartan 12.5 mg-320 mg oral tablet Start: 07/22/23 14:05:00 EDT, See Instructions, Disp# 30 tab, Refills: 11, TAKE 1 TABLET BY MOUTH ONCE DAILY, Pharmacy: [id number] Start Date: 07/22/23 Status: Ordered levothyroxine 100 mcg (0.1 mg) oral tablet Start: 09/23/22 17:16:00 EST, 1 tab, PO, Daily, Disp# 90 tab, Refills: 3, Pharmacy: [id number] Start Date: 09/23/22 Status: Ordered liraglutide (Victoza) 18 mg/3 mL subcutaneous solution Start: 11/29/22 17:02:00 EST, 0.9 mg =, subQ, Daily, Disp# 9 mL, Refills: 5, Pharmacy: [id number] Start Date: 11/29/22 Stop Date: 05/28/23 Status: Ordered One Touch Ultra Test Strips 25 ct Start: 07/01/21 14:57:00 EDT, See Instructions, Disp# 100 strip, Refills: 5, Test TID, Pharmacy: [id number] Start Date: 07/01/21 Status: Ordered Mental Status 09/09/23 Barriers to Learning one year None evide nt Mandatory Health Literacy Documentation Yes Health Literacy Communication Barriers N ever Primary Language Maltese Problem List Condition Confirmation Course Effective Dates Status Health Status Informant Neurologic gait dysfunction Confirmed Active Benign essential HTN Confirmed Active Carotid artery occlusion Confirmed Active Chronic kidney disease, stage 3 unspecified 1 Confirmed Active Chronic obstructive lung disease (disorder) 2 Confirmed Active Exudative age-related macular degeneration of left eye with active choroidal neovascularization 3 Confirmed Active Chronic gout Confirmed Active Hypothyroidism Confirmed Active Low back pain radiating to right leg Confirmed Active Degenerative joint disease (DJD) of lumbar spine Confirmed Active Morbid obesity 4 Confirmed Active Nonexudative age-related macular degeneration, right eye, early dry stage 5 Confirmed Active Central retinal artery occlusion of left eye Confirmed Active Left knee DJD Confirmed Active Chronic pain of left knee Confirmed Active Depression, major, recurrent 6 Confirmed Active Restless legs syndrome (RLS) Confirmed Active Type 2 diabetes mellitus with nephropathy 7 Confirmed Active 1GFR= 35 [facility] 2See outside note 07/22/22 3[facility] 4BMI >40 5[facility] Diagnosis Diagnosis Type Effective Dates Health Status Clinical Service Informant Neurologic gait dysfunction Discharge Diagnosis 09/09/23 Degenerative joint disease (DJD) of lumbar spine Discharge Diagnosis 09/09/23 Low back pain radiating to right leg Discharge Diagnosis 09/09/23 Procedures Procedure Date Related Diagnosis Body Site Status Phacoemulsification of catar act with intraocular lens implantation 1 03/23/23 Completed Diagnostic audiology 2 06/18/22 Co mpleted Cataract - Right 3 12/22/14 Comple nate Cholecystectomy 2005 Completed Right Knee Arthroscopy 4 Completed Tonsillectomy Completed [facility] [address] [place] [address] Impression: 1. 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 Normal middle ear pressure and complicance for the right ear and slightly reduced middle ear compliance with normal middle era pressure for the left ear 312/2015 [id number] Social History Social History Type Response Tobacco Former smoker, Smoke less tobacco use: Former smokeless tobacco user, quit more than 1 year ago. 1 Smoking Status Former Smoker, quit > 1 yr Sex 1Quit 1991 Ortho Outpt Note * MD Soriano Philip J: MODIFY MD Soriano Philip J: MODIFY Event Display: Ortho Outpt Note Authored Date: [id number] Primary Care Provider BLAKE Joshua Jessica A Chief Complaint complains of pain from right buttock to her knee. Did not look into PT History of Present Illness This is an 83-year-old female coming in forcontinued evaluation of low back pain radiating to theright leg. She is been taking [id number] mg twice a milligrams twice daily with some relief. She continues to have right leg pain. She does feellike her back pain and knee pain are better. She [id number] the right leg. Has not done physical therapy formally yet.She has done some physical therapy exercises at home but she says that they hurt so she has not continued these. Physical Exam Gen: Using a wheelchair in the office, accompanied by her daughter. Physical exam focused on the right lower extremitydemonstrated 5 out of 5 strength with knee flexion extensiondorsiflexion plantarflexion L4 L5-S1 dermatomes intact Assessment/Plan 1.Degenerative joint disease (DJD) of lumbar spine We discussed with the patient several options. We encouraged her to follow-up with physical therapy. Given hergait dysfunction anddecreased mobilitywe will arrange physical therapy hopefullyto bevisit her at home. We discussedpossible started prednisone however she has hadhyperglycemia reactionsto this and declined at this time. She is currently taking diclofenac 25 mgtwice dailyand we increase this to 50 mg twice daily a new prescription was sent in. We will follow her back up in 1 month 2.Neurologic gait dysfunction See #1 3.Low back pain radiating to right leg See #1 Attestation Attending Physician's Statement: I saw and evaluated the patient and I have discussed the case with the fellow. I agree with the findings and plan as documented in the fellow's note. 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 Hypothyroidism Left knee DJD Low back pain radiating to right leg Morbid obesity Neurologic gait dysfunction Nonexudative age-related macular degeneration, right eye, early dry stage Restless legs syndrome (RLS) Type 2 diabetes mellitus with nephropathy Procedure/Surgical History Phacoemulsification of cataract with intraocular lens implantation (03/23/2023)Diagnostic audiology (06/18/2022)Cataract - Right (12/22/2014)Cholecystectomy (2004)[place] tooth Extractio nTonsillectomyRight Knee Arthroscopy Medications albuterol(Albuterol (Eqv-Proventil HFA) 90 mcg/inh inhalation aerosol), 2 puff, inhaled, q6h, PRN, 5 refills allopurinol(allopurinol 300 mg oral tablet), 150 mg= 0.5 tab, PO, Daily, 5 refills diabetes supplies(One Touch Ultra Test Strips 25 ct), See Instructions, 5 refills diclofenac(diclofenac sodium 50 mg oral delayed release tablet), 50 mg= 1 tab, PO, bid, 1 refills DULoxetine(DULoxetine 20 mg oral delayed release capsule), 20 mg= 1 cap, PO, Daily, 5 refills gabapentin(gabapentin 100 mg oral capsule), See Instructions, 5 refills glipiZIDE(glipiZIDE 5 mg oral tablet, extended release), See Instructions, 5 refills hydroCHLOROthiazide-valsartan(hydroCHLOROthiazide-valsartan 12.5 mg-320 mg oral tablet), See Instructions, 11 refills levothyroxine(levothyroxine 100 mcg (0.1 mg) oral tablet), 100 mcg= 1 tab, PO, Daily, 3 refills liraglutide(liraglutide (Victoza) 18 mg/3 mL subcutaneous solution), 0.9 mg, subQ, Daily, 5 refills sodium hyaluronate(Euflexxa 10 mg/mL intra-articular solution), 20 mg, intra- articular, q7days syringe needles(BD needle Ultra-Fine III Mini Pen 31G x 5mm), See Instructions, 1 refills Allergies Nickelitchy/rash Social History Smoking Status Former Smoker, quit > 1 yr Alcohol - Denies Alcohol Use Employment/School Status:Retired Exercise - Does not exercise Sexual Sexually active:No Self described orientation:Straight or heterosexual Substance Abuse - Denies Substance Abuse Tobacco - Denies Tobacco Use Use:Former smoker Smokeless tobacco use:Former smokeless tobacco user, quit more than 1 year ago - Comments: Quit 1991 Family History Heart attack: Mother, Father and Sister. Hypertension: Mother and Sister. Type II diabetes mellitus: Mother and Sister. Health Status Family Member(s) Recommendations Health Maintenance Pending(in the next year) OverDue Adult Influenza Vaccine due03/26/23and every 1year Due Adult COVID-19 Vaccination due09/09/23Unknown Frequency Adult Social Determinants of Health Screening due09/09/23Unknown Frequency Adult Tdap/Td Vaccine due09/09/23Unknown Frequency Falls Plan of Care due09/09/23Unknown Frequency Osteoporosis Screening due09/09/23One-time only Pneumococcal Vaccine Older Adults due09/09/23One-time only Shingles Vaccine due09/09/23One-time only Due In Future Diabetic Eye Exam not due until10/05/23and every 366day Medicare Annual Wellness Visit not due until11/12/23and every 1year Diabetes Management A1c not due until08/19/24and every 366day Body Mass Index not due until08/26/24and every 366day Satisfied(in the past 1 year) Satisfied Body Mass Index on07/08/23.Satisfied by TOMMIE Hamilton Natasha Diabetes Management A1c on08/19/23.Satisfied by Contributor_system, [email or web address] Diabetes Nephropathy Management on08/19/23.Satisfied by Contributor[employer]system, [email or web address] Lipid Screening on08/19/23.Satisfied by Contributor[employer]system, [email or web address] Medicare Annual Wellness Visit on11/12/22.Satisfied by BLAKE Joshua Jessica A Electronic Signature on File Electronically Reviewed/Signed by: Se Messer DO Author Signature Dt/Tm:09/09/2023 02:53 PM Resident Division of Sports Medicine Electronically Reviewed/Signed by: Fredi Soriano MD Cosigner Signature Dt/Tm: 09/09/2023 05:25 PM Division of Sports Medicine RP Patient Care team information Care Team Personnel Name: BLAKE Joshua Jessica A Position: Physician Asst Pina - Family Med Member Role: Primary Care Provider Address: Address: [address] [place] [id number] [place]
--- OUTSIDE RECORDS SUMMARY | 2023-09-14 01:53 | External Medical Summary | Continuity of Care Document ---
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 Name Role Phone Marilin Joshua Primary Care Physician [phone] Encounter [facility] FINNBR [id number] Date(s): 08/26/23 - 08/26/23 [facility] [address] [place] [address] [phone] Encounter Diagnosis Degenerative joint disease (DJD) of lumbar spine(Discharge Diagnosis) - 08/26/23 Benign hypertension without congestive heart failure(Discharge Diagnosis) - 08/26/23 Left knee DJD(Discharge Diagnosis) - 08/26/23 Restless legs syndrome (RLS)(Discharge Diagnosis) - 08/26/23 Central retinal artery occlusion of left eye(Discharge Diagnosis) - 08/26/23 Type 2 diabetes mellitus with nephropathy(Discharge Diagnosis) - 08/26/23 Discharge Disposition: Home or Self Care Attending Physician: BLAKE Joshua Jessica A Allergies, Adverse Reactions, Alerts Substance Reaction Severity Status Nickel itchy/rash Active Assessment and Plan Extracted from: Title:6 month f/u Author:BLAKE Joshua Jessic a A Date:08/26/23 1.Degenerative joint disea se (DJD) of lumbar spine DJD of lumbar spine is chronic and to continue with care of [facility]. Pain is currently improving with diclofenac 25 mg twice daily. Discussed that if needed we do have room to increase dose of her gabapentin, but for now declines to make any changes. 2.Benign hypertension without congestive heart failure Hypertension without congestive heart failure is chronic and overall stable. SBP is slightly above goal today, but would avoidexcessively lowering blood pressure due to ageand unsteady gait. Continuevalsartan HCTZ 320-12.5 mg daily. Follow up in 6 months. 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 Continue on [id number] mg twice daily, topical Voltaren gel as needed andTylenol 1000 mg every 8 hours as needed. 4.Restless legs syndrome (RLS) RLS is chronic and well controlled. Goal is resolution of symptoms. To continue onduloxetine and gabapentin. 5.Central retinal artery occlusion of left eye History of central retinal artery occlusion of left eye is chronic.At one time patient was on both pravastatin and ASA, but these are no longer on her medication list. Recommend she check to see if she is still taking.Recommend tightglycemic and blood pressure control. 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 Goal A1c is <8% andlabs completed last week were reviewed today that show A1c of 7.7%. Continue glipizide ER 5 mg twice daily and Victoza 0.9 mg SCdaily. Continue annual eye examinations. We will have her follow-up again in 6 monthsand sooner if needed. Medications Albuterol (Eqv-Proventil HFA) 90 mcg/inh inhalation aerosol Start: 03/25/22 14:38:00 EDT, 2 puff, inhaled, q6h, Disp# 6.7 g, Refills: 5, PRN: shortness of breath, Pharmacy: [id number] Start Date: 03/25/22 Stop Date: 09/21/22 Status: Ordered allopurinol 300 mg oral tablet Start: 07/22/23 14:05:00 EDT, 0.5 tab, PO, Daily, Disp# 15 tab, Refills: 5, Note to Pharmacy: d/c allopurinol 100 mg, Pharmacy: [id number] Start Date: 07/22/23 Stop Date: 01/18/24 Status: Ordered BD needle Ultra-Fine III Mini Pen 31G x 5mm Start: 04/18/23 16:48:00 EDT, See Instructions, Disp# 100 each, Refills: 1, Use to inject Victoza once daily, Note to Pharmacy: ICD-10: E11.9, Pharmacy: [id number] Start Date: 04/18/23 Status: Ordered diclofenac sodium 25 mg oral delayed release tablet Start: 06/10/23 9:26:00 EDT, See Instructions, Disp# 60 tab, Refills: 0, TAKE 1 TABLET BY MOUTH TWICE DAILY WITH FOOD, Pharmacy: [id number] Start Date: 06/10/23 Status: Ordered DULoxetine 20 mg oral delayed release capsule Start: 07/22/23 14:05:00 EDT, 1 cap, PO, Daily, Disp# 30 cap, Refills: 5, Pharmacy: [id number] Start Date: 07/22/23 Stop Date: 01/18/24 Status: Ordered Euflexxa 10 mg/mL intra-articular solution Start: 01/17/23 9:13:00 EDT, 20 mg =, intra-articular, q7days, Disp# 6 mL, Refills: 0, L KNEE DJD M17.12, Note to Pharmacy: 3 syringes for L knee. Please ship to physician's office: [facility] Zuleyka Landers.[facility]. [address] [place] [address], [place] [address], [facility] N... Start Date: 01/17/23 Stop Date: 02/07/23 Status: Ordered gabapentin 100 mg oral capsule Start: 07/22/23 14:05:00 EDT, See Instructions, Disp# 60 cap, Refills: 5, TAKE 1 CAPSULE BY PO q AMand 2 cap PO qPM, Pharmacy: [id number] Start Date: 07/22/23 Status: Ordered glipiZIDE 5 mg oral tablet, extended release Start: 07/22/23 14:05:00 EDT, See Instructions, Disp# 60 tab, Refills: 5, TAKE 1 TABLET BY MOUTH TWICE DAILY, Pharmacy: [id number] Start Date: 07/22/23 Status: Ordered hydroCHLOROthiazide-valsartan 12.5 mg-320 mg oral tablet Start: 07/22/23 14:05:00 EDT, See Instructions, Disp# 30 tab, Refills: 11, TAKE 1 TABLET BY MOUTH ONCE DAILY, Pharmacy: [id number] Start Date: 07/22/23 Status: Ordered levothyroxine 100 mcg (0.1 mg) oral tablet Start: 09/23/22 17:16:00 EST, 1 tab, PO, Daily, Disp# 90 tab, Refills: 3, Pharmacy: [id number] Start Date: 09/23/22 Status: Ordered liraglutide (Victoza) 18 mg/3 mL subcutaneous solution Start: 11/29/22 17:02:00 EST, 0.9 mg =, subQ, Daily, Disp# 9 mL, Refills: 5, Pharmacy: [id number] Start Date: 11/29/22 Stop Date: 05/28/23 Status: Ordered One Touch Ultra Test Strips 25 ct Start: 07/01/21 14:57:00 EDT, See Instructions, Disp# 100 strip, Refills: 5, Test TID, Pharmacy: [facility] [place] [address] Start Date: 07/01/21 Status: Ordered Mental Status 08/26/23 Barriers to Learning one year None evide nt Mandatory Health Literacy Documentation Yes Health Literacy Communication Barriers N ever Primary Language [place] Problem List Condition Confirmation Course Effective Dates Status Health Status Informant Benign essential HTN Confirmed Active Carotid artery occlusion Confirmed Active Chronic kidney disease, stage 3 unspecified 1 Confirmed Active Chronic obstructive lung disease (disorder) 2 Confirmed Active Exudative age-related macular degeneration of left eye with active choroidal neovascularization 3 Confirmed Active Chronic gout Confirmed Active Hypothyroidism Confirmed Active Degenerative joint disease (DJD) of [...] with nephropathy 7 Confirmed Active 1GFR= 35 [facility] 2See outside note 07/22/22 3[facility] 4BMI >40 5[facility] 6[facility] Dul[facility] 7[facility] Diagnosis Diagnosis Type Effective Dates Health Status Clinical Service Informant Degenerative joint disease (DJD) of lumbar spine Discharge Diagnosis 08/26/23 Non-Specified Restless legs syndrome (RLS) Discharge Diagnosis 08/26/23 Non-Specified Type 2 diabetes mellitus with nephropathy Discharge Diagnosis 08/26/23 Non-Specified Left knee DJD Discharge Diagnosis 08/26/23 Non-Specified Central retinal artery occlusion of left eye Discharge Diagnosis 08/26/23 Non-Specified Benign hypertension without congestive heart failure Discharge Diagnosis 08/26/23 Non-Specified Procedures Procedure Date Related Diagnosis Body Site Status Phacoemulsification of catar act with intraocular lens implantation 1 6/28/23 Completed Diagnostic audiology 2 06/18/22 Co mpleted Cataract - Right 3 12/22/14 Comple nate Cholecystectomy 2004 Completed Right Knee Arthroscopy 4 Completed Tonsillectomy Completed [place] [facility] Impression: 1. 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 Normal middle ear pressure and complicance for the right ear and slightly reduced middle ear compliance with normal middle era pressure for the left ear 14311 Vital Signs Most recent to oldest [Reference Range]: 1 Patient Weight 105.6 kg (08/26/23 2:53 PM) Heart Rate 76 bpm (08/26/23 2:53 PM) Respiratory Rate 20 br/min (08/26/23 2:53 PM) Blood Pressure 142/70mmHg (08/26/23 2:53 PM) Cuff Pulse Pressure 72 mmHg (08/26/23 2:53 PM) BP Location # 1 Left Arm (08/26/23 2:53 PM) Social History Social History Type Response Tobacco Former smoker, Smoke less tobacco use: Former smokeless tobacco user, quit more than 1 year ago. 1 Smoking Status Former Smoker, quit > 1 yr Sex 1Quit 1991 [facility] Note * BLAKE Joshua, Marilin Kidd: PERFORM Event Display: [facility] Note Authored Date: Chief Complaint follow up, discuss diclofenac topical and oral History of Present Illness Garret presents for 3-4 month follow up of chronic left knee pain secondary to DJD, major depression,RLS and hypertension without congestive heart failure. Continues to follow with [facility] sports medicine for chronicleft knee pain secondary to DJD.Notes that she was toldif she loses an additional 25 pounds they will consider doinga knee replacement in [place],but if she is not able to lose weight and would be considering replacement she would need to have this done at [facility]. Notes that she has had increased pain in her knee, l ower back andright thigh for the last few weeks that has been difficult to walk. [facility] pain is likely coming from her back. She was started on diclofenac 25 mg twice dailywhich she feels is helping. He did want her to do physical therapy, but sheopts out at this time. Has a sense of burning in her right proximal thigh as well. Type 2 diabetes with stage III CKD/diabetic nephropathyis chronic. Most recent labs show A1cis 7.7%. Continues on Victoza0.9 mg SC once daily and glipizide ER 5 mg, 1 tab p.o. twice daily. Checking glucose twice daily fasting in the AM and PM that has [id number] the AMand 150s in the evening.No ETOH, tobacco or drug use. No regular exercise. Does not follow diabetic diet. Lives alone and doesn't like to cook. Getting annual eye examinations. + hx of left eye stroke a few years ago and has loss of central vision from left eye. Did have a cataract removed since our last visit that did not improve vision. No hypoglycemic episodes, polyuria, polydipsia, polyphagia, numbness/tingling in extremities, poor healing wounds, foot ulcerations, diplopia, palpitations, tachycardia, loss of balance or falls. Hypertension without congestive heart failure is chronic. Does not check BP at home. Compliant withvalsartanHCTZ 320-12.5 mg daily. No ETOH, tobacco or drug use. No regular exercise. +chronic CHAMBERS that is unchanged from her baseline.No claudication, chest pain, palpitations, tachycardia, dizziness, lightheadedness, weakness, near syncope, syncope, nausea, vomiting, diarrhea, constipation, cough, LE edema, headaches, blurred vision, loss of vision, confusion or epistaxis. RLS is chronic and stable. Has chronically taken duloxetine 20 mg daily and gabapentin 100 mg twice daily. At times has difficulty falling and staying asleep due to restless legs. Hypothyroidism is chronic and stable w/ levothyroxine 100 mcg once daily. Review of Systems ROS:All other systems negative, except HPI. Physical Exam Vitals & Measurements HR:76(Monitored) RR:20 BP:142/70 SpO2:95% WT:105.6kg WT:105.600kg(Dosing) PHQ2 Data(Data Documented on:08/26/2023 14:53) Emotional health assessment NEGATIVE General: Alert and oriented, No acute distress.Pleasant elderly female. Eye: Pupils are equal, round and reactive to light, Extraocular movements are intact, Normal conjunctiva. HENT: Normocephalic. TMs clear bilaterally. Posterior pharynx is pink. Uvula rises midline. No drooling, stridor or cyanosis. Neck: Supple, No lymphadenopathy, No thyromegaly. No audible carotid bruit. Respiratory: Lungs are clear to auscultation, Respirations are non-labored, Breath sounds are equal, Symmetrical chest wall expansion. Cardiovascular: Normal rate, Regular rhythm,+ soft, grade I/ CAMMIE,loudest at2nd ICS, RUSB.No gallop, Good pulses equal in all extremities, Normal peripheral perfusion. No LE edema. Abdomen: Normoactive BS x 4. Soft. No tenderness, palpable masses or organomegaly. Lymphatics: No submandibular, anterior or posterior cervical adenopathy palpable. Musculoskeletal Antalgic gait.FROM and 5/5 strength at BLE and BUE. Integumentary: Warm, [place], No pallor. Neurologic: Alert, Oriented, Cranial Nerves II-XII are grossly intact. Cognition and Speech: Oriented, Speech clear and coherent, Functional cognition intact. Psychiatric: Cooperative, Appropriate mood & affect, Normal judgment, Nonsuicidal. 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 Pain is currently improving with diclofenac 25 mg twice daily. Discussed that if needed we do have room to increase dose of her gabapentin, but for now declines to make any changes. 2.Benign hypertension without congestive heart failure Hypertension without congestive heart failure is chronic and overall stable. SBP is slightly above goal today, but would avoidexcessively lowering blood pressure due to ageand unsteady gait. ContinuevalsartanHCTZ 320-12.5 mg daily. Follow up in 6 months. 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 Continue on [id number] mg twice daily, topical Voltaren gel as needed andTylenol 1000 mg every 8 hours as needed. 4.Restless legs syndrome (RLS) RLS is chronic and well controlled. Goal is resolution of symptoms. To continue onduloxetine and gabapentin. 5.Central retinal artery occlusion of left eye History of central retinal artery occlusion of left eye is chronic.At one time patient was on both pravastatin and ASA, but these are no longer on her medication list. Recommend she check to see if she is still taking.Recommend tightglycemic and blood pressure control. 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 Goal A1c is <8% andlabs completed last week were reviewed today that show A1c of 7.7%. Continue glipizide ER 5 mg twice daily and Victoza 0.9 mg SCdaily. Continue annual eye examinations. We will have her follow-up again in 6 monthsand sooner if needed. 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 Hypothyroidism Left knee DJD Morbid obesity Nonexudative age-related macular degeneration, right eye, early dry stage Restless legs syndrome (RLS) Type 2 diabetes mellitus with nephropathy Procedure/Surgical History Phacoemulsification of cataract with intraocular lens implantation (03/23/2023)Diagnostic audiology (06/18/2022)Cataract - Right (12/22/2014)Cholecystectomy (2004)[place] tooth Extractio nTonsillectomyRight Knee Arthroscopy Medications albuterol(Albuterol (Eqv-Proventil HFA) 90 mcg/inh inhalation aerosol), 2 puff, inhaled, q6h, PRN, 5 refills allopurinol(allopurinol 300 mg oral tablet), 150 mg= 0.5 tab, PO, Daily, 5 refills diabetes supplies(One Touch Ultra Test Strips 25 ct), See Instructions, 5 refills diclofenac(diclofenac sodium 25 mg oral delayed release tablet), See Instructions DULoxetine(DULoxetine 20 mg oral delayed release capsule), [...] solution), 0.9 mg, subQ, Daily, 5 refills methylPREDNISolone(Medrol Dosepak 4 mg oral tablet), See Instructions sodium hyaluronate(Euflexxa 10 mg/mL intra-articular solution), 20 [...] due03/26/23and every 1year Due Adult COVID-19 Vaccination due08/26/23Unknown Frequency Adult Tdap/Td Vaccine due08/26/23Unknown Frequency Falls Plan of Care due08/26/23Unknown Frequency Osteoporosis Screening due08/26/23One-time only Pneumococcal Vaccine Older Adults due08/26/23One-time only Shingles Vaccine due08/26/23One-time only Due In Future Diabetic Eye Exam not due until10/05/23and every 366day Medicare Annual Wellness Visit not due until11/12/23and every 1year Diabetes Management A1c not due until08/19/24and every 366day Body Mass Index not due until08/25/24and every 1year Satisfied(in the past 1 year) Satisfied Body Mass Index on07/08/23.Satisfied by TOMMIE Hamilton Natasha Diabetes Management A1c on08/19/23.Satisfied by Contributor_system, [id number] Diabetes Nephropathy Management on08/19/23.Satisfied by Contributor_system, [id number] Lipid Screening on08/19/23.Satisfied by Contributor_system, [id number] Medicare Annual Wellness Visit on11/12/22.Satisfied by BLAKE Joshua Jessica A Patient Care team information Care Team Personnel Name: BLAKE Joshua Jessica A Position: Physician Asst Pina - Family Med Member Role: Primary Care Provider Address: Address: [address] [place] [id number]
--- NOTE | 2023-09-14 01:55 | CT Scan Report ---
Exam(s): CT L SPINE EXAM: CT Lumbar Spine Without Intravenous Contrast CLINICAL HISTORY: Reason for exam: pain. TECHNIQUE: Axial computed tomography images of the lumbar spine without intravenous contrast. Automated exposure control was utilized for the study. A dose lowering technique was utilized adhering to the principles of ALARA. COMPARISON: No relevant prior studies available. FINDINGS: Vertebrae: Unremarkable. No acute fracture. There is mild wedging of the L1 and L2 segments, which is likely physiologic. Discs/spinal canal/neural foramina: Moderate to advanced disc degeneration at L2-3, L3-4, L4-5 and L5-S1. No acute findings. There is a severe spinal canal stenosis at L2-3. Soft tissues: Hepatic steatosis. IMPRESSION: No evidence of acute lumbar spine pathology. Electronically signed by: Luz Jimenes MD 09/14/23 01:54 AM
[2023-09-14] MEDS: INSULIN ASPART PER UNIT CHARGE SC SCH ×5 (03:27→20:56)
[2023-09-14] MEDS: LEVOTHYROXINE SODIUM 100 MCG TABLET PO SCH (05:22)
[2023-09-14 06:55] LABS: Hematocrit (blood only) 37.3 % (37.0-47.0); Hemoglobin 12.1 g/dl (12.0-16.0); Mean Corpuscular Hemoglobin 29.5 pg (25.0-34.0); Mean Corpuscular Hgb Conc 32.4 g/dL (32.0-36.0); Mean Platelet Volume 9.6 fL (9.4-12.4); Platelet Count 226 K/uL (130-400); RDW Coefficient of Variation 13.7 % (11.5-14.5); RDW Standard Deviation 45.1 fL (36.4-46.3)
[2023-09-14 07:34] LABS: Albumin Level 3.7 gm/dl (3.4-5.0); BUN Creatinine Ratio 22.1 (10-20); Calcium 8.2 mg/dl (8.6-10.3); Creatinine Clr Calc Pharmacy 36.9 ml/min; Est GFR (African American) 44.1 ml/min; Est GFR (Non-African American) 38.1 ml/min; Magnesium 1.8 mg/dl (1.7-2.4); Phosphorus 2.2 mg/dl (2.5-4.9); Potassium 4.8 mmol/L (3.5-5.1)
[2023-09-14 07:39] LABS: Basophils # (auto) 0.02 K/uL (0.00-0.20); Basophils % (auto) 0.2 %; Immature Granulocytes # (auto) 0.07 K/uL (0.01-0.20); Immature Granulocytes % (auto) 0.7 %; Lymphocytes # (auto) 0.68 K/uL (1.20-3.40); Lymphocytes % (auto) 7.2 %; Monocytes % (auto) 1.1 %; Neutrophils # (auto) 8.63 K/uL (1.40-6.50); Neutrophils % (auto) 90.8 %
[2023-09-14] MEDS ORDERED: methylPREDNISolone 40 MG in SYRINGE 0 ML IV SCH (08:00)
[2023-09-14] MEDS ORDERED: VALSARTAN/HCTZ 320/12.5 MG TAB PO SCH (09:00)
[2023-09-14] MEDS: GABAPENTIN 100 MG CAP PO SCH (09:35)
[2023-09-14] MEDS: CHOLECALCIFEROL 5,000 UNITS 125 MCG TAB PO SCH (09:35)
[2023-09-14] MEDS: CYANOCOBALAMIN (B-12) 2,500 MCG TABLET PO SCH (09:36)
[2023-09-14] MEDS: HEPARIN SOD 5,000 UNIT/0.5 ML VIAL SQ SCH ×2 (09:36→20:59)
[2023-09-14] MEDS: allopurinoL 300 MG TAB PO SCH (09:37)
[2023-09-14] MEDS: DULoxetine HCL 20 MG CAP PO SCH (09:38)
--- NOTE | 2023-09-14 11:15 | Discharge Summary ---
Date of Service September 14, 2023 Admission HPI Per Admitting Provider The patient is a 83-year-old female with past medical history including gout, diabetes mellitus type 2, COPD, DIANA, hypertension, pulmonary edema, SNHL and elevated troponin levels. She presents to the emergency department with acute onset of right sacroiliac area pain, affecting her ability to ambulate. She denies any recent trauma, travels or sick exposures. She reports that the symptoms felt similar to previous gout attacks and other areas of her body. The patient was given methylprednisolone 125 mg IV and morphine sulfate 3 mg IV x 2 from the ED, and referred for evaluation for admission due to intractable pain and inability to ambulate Discharge Data Allergies Allergy/AdvReac Type Severity Reaction Status Date / Time No Known Allergies Allergy Verified 09/13/23 17:20 Consultations 09/13/23 21:25 ED Decision to Admit Stat Ordered Studies 09/13/23 22:22 CT hip RT wo con Stat CT lumbar spine wo con Stat CT pelvis wo con Stat Hospital Course (1) Pain of right sacroiliac joint: (2) Gout: (3) DM2 (diabetes mellitus, type 2): (4) COPD (chronic obstructive pulmonary disease): (5) Hypertension: Plan Right sacroiliac joint pain- Initial x-rays of hip/pelvis and femur were negative CT scans were then performed of lumbar spine, pelvis and hips, all of which were negative for occult fracture Symptoms are more suggestive of a right sacroiliitis She did receive methylprednisolone 125 mg IV in the ED and Toradol [address] on methylprednisolone 40 mg IV every 12 hours Consult PT/OT Does not appear to be a muscle spasm involvement, although a trial of baclofen could possibly be evaluated for symptoms are persistent Assessment for asymmetric leg lengths may be indicated Acetaminophen 650 mg by mouth every 6 hours as needed for mild pain or fever Tramadol 50 mg by mouth every 4 hours as needed for moderate pain Morphine sulfate 1 mg IV every 4 hours as needed for severe pain. Avoid s tronger doses of morphine as patient did become hypoxic while in the ED Diabetes mellitus- Hold glipizide and Victoza Place on Accu-Cheks with NovoLog SSI Monitor closely while receiving methylprednisolone IV Hypertension/CKD stage III- Continue losartan-HCTZ Hold diclofenac Did receive Toradol x 1 dose to be able to get through CT studies NSS at 80 mL/h x 1 L Follow serial renal function panel and magnesium levels Discharge Plan Discharge Items Reason For Visit: INTRACTABLE HIP PAIN Follow-up/Referrals: Marilin Joshua PA-C [Primary Care Provider] - Medications and DC Order Prescriptions: No Action glipizide 5 mg tablet extended release 24 hr 5 mg PO BIDM levothyroxine 100 mcg tablet 100 mcg PO QAM gabapentin 100 mg capsule 0 mg PO BID Rx Instructions: Take 100mg by mouth in the morning and 200mg at bedtime albuterol sulfate 90 mcg/actuation HFA aerosol inhaler 1 - 2 puff INHALATION DAILY PRN (Reason: Shortness Of Breath Or Wheezing) duloxetine 20 mg capsule,delayed release(DR/EC) 20 mg PO QAM valsartan-hydrochlorothiazide 320-12.5 mg tablet 1 tab PO QAM Victoza 3-[place] 0.6 mg/0.1 mL (18 mg/3 mL) pen injector 0.9 mg SUBCUT HS allopurinol 300 mg tablet 150 mg PO QAM cholecalciferol (vitamin D3) [Vitamin D3] 125 mcg (5,000 unit) Tablet 125 mcg PO QAM cyanocobalamin (vitamin B-12) 5,000 mcg Capsule 5,000 mcg PO QAM acetaminophen [Tylenol Ex Str Rapid Release] 500 mg Tablet 1,500 mg PO DAILY PRN (Reason: Pain) diclofenac sodium 50 mg tablet,delayed release (DR/EC) 50 mg PO BID Krames/Other Patient Handouts: Managing Type 2 Diabetes, Special Foot Care for Diabetes Admission Data Admit Date/Time: 09/13/23 22:51 Attending Provider: Tal Caraballo Admit Provider: Fernando Reddy Primary Care Provider: Marilin Joshua Other Providers: Fernando Reddy; [facility] Coding Diagnoses Pain of right sacroiliac joint M53.3 Gout M10.9 DM2 (diabetes mellitus, type 2) E11.9 COPD (chronic obstructive pulmonary disease) J44.9 Hypertension I10
[2023-09-14] MEDS: hydroCHLOROthiazide 25 MG TAB PO SCH (12:18)
[2023-09-14] MEDS: VALSARTAN 80 MG TAB PO SCH (12:19)
[2023-09-14] MEDS ORDERED: GABAPENTIN 100 MG CAP PO SCH (21:00)
--- NOTE | 2023-09-14 21:57 | Hospitalist Progress Note ---
Date of Service September 14, 2023 Assessment & Plan (1) Pain of right sacroiliac joint: Plan: Right sacroiliac joint pain- RIght piriformis syndrome Initial x-rays of hip/pelvis and femur were negative CT scans were then performed of lumbar spine, pelvis and hips, all of which were negative for occult fracture Cut back on cortciosteroids Initally plan was to discharge patient but due to pain and her living arrangements, (lives by herself) Will await PT/OT. Showed her exercises to stretch piriformis Will monitor. Consult PT/OT Diabetes mellitus- Hold glipizide and Victoza Place on Accu-Cheks with NovoLog SSI Monitor closely while receiving methylprednisolone IV Hypertension/CKD stage III- Continue losartan-HCTZ Hold diclofenac Did receive Toradol x 1 dose to be able to get through CT studies NSS at 80 mL/h x 1 L Follow serial renal function panel and magnesium levels (2) Gout: (3) DM2 (diabetes mellitus, type 2): (4) COPD (chronic obstructive pulmonary disease): (5) Hypertension: Admission and Anticipated Discharge Date Admission Date: September 13, 2023 Subjective Patient with moderate to severe pain on her right buttock. Review of Systems Review of Systems: All systems reviewed & are unremarkable except as noted in HPI & below Physical Exam Physical Exam: The patient is awake, alert and oriented 3, yolanda in bed and in no acute distress. MSk: severe tenderness to palpation over RIght SI joint and RIght piriformis, Mild tenderness to palpation over right gluteal region. Results & Data Results & Data Vital Signs (Past 12 Hours) Vital Signs Temp Pulse Pulse Resp BP Pulse Ox O2 Del Method 09/14/23 19:41 36.7 C 65 18 127/57 L 95 Room Air 09/14/23 15:19 68 09/14/23 14:56 36.8 C 67 16 133/66 94 Room Air 09/14/23 11:45 36.8 C 68 18 136/67 93 Room Air PG Care Time/CCT Total # of Minutes Spent Total Time Spent with Patient: Total time spent is greater than 50% in coordination of care (as documented) at patient's floor/unit and/or counseling patient: Coding Level of Care Code 16165 SUB INP/OBS CARE 2/35MIN Diagnoses Pain of right sacroiliac joint M53.3 Gout M10.9 DM2 (diabetes mellitus, type 2) E11.9 COPD (chronic obstructive pulmonary disease) J44.9 Hypertension I10
[2023-09-15] MEDS: LEVOTHYROXINE SODIUM 100 MCG TABLET PO SCH (06:18)
[2023-09-15 06:45] LABS: Basophils # (auto) 0.03 K/uL (0.00-0.20); Basophils % (auto) 0.3 %; Eosinophils % (auto) 0.9 %; Hematocrit (blood only) 35.8 % (37.0-47.0); Hemoglobin 11.4 g/dl (12.0-16.0); Immature Granulocytes # (auto) 0.05 K/uL (0.01-0.20); Immature Granulocytes % (auto) 0.5 %; Lymphocytes % (auto) 20.8 %; Mean Corpuscular Hemoglobin 29.2 pg (25.0-34.0); Mean Corpuscular Hgb Conc 31.8 g/dL (32.0-36.0); Mean Corpuscular Volume 91.6 fL (80.0-100.0); Mean Platelet Volume 9.3 fL (9.4-12.4); Monocytes # (auto) 0.75 K/uL (0.11-0.59); Monocytes % (auto) 7.1 %; Neutrophils # (auto) 7.46 K/uL (1.40-6.50); Neutrophils % (auto) 70.4 %; Platelet Count 205 K/uL (130-400); RDW Coefficient of Variation 13.9 % (11.5-14.5); RDW Standard Deviation 46.5 fL (36.4-46.3); Red Blood Count 3.91 M/uL (4.20-5.40); White Blood Count 10.59 K/ul (4.8-10.8)
[2023-09-15 07:11] LABS: Albumin Level 3.5 gm/dl (3.4-5.0); BUN Creatinine Ratio 28.3 (10-20); Calcium 8.3 mg/dl (8.6-10.3); Creatinine Clr Calc Pharmacy 34.3 ml/min; Est GFR (Non-African American) 33.7 ml/min; Phosphorus 3.6 mg/dl (2.5-4.9); Potassium 4.6 mmol/L (3.5-5.1)
[2023-09-15] MEDS: hydroCHLOROthiazide 25 MG TAB PO SCH (08:05)
[2023-09-15] MEDS: VALSARTAN 80 MG TAB PO SCH (08:06)
[2023-09-15] MEDS: HEPARIN SOD 5,000 UNIT/0.5 ML VIAL SQ SCH (08:10)
[2023-09-15] MEDS ORDERED: methylPREDNISolone 40 MG in SYRINGE 0 ML IV SCH (09:00)
[2023-09-15] MEDS: GABAPENTIN 100 MG CAP PO SCH (09:35)
[2023-09-15] MEDS: allopurinoL 300 MG TAB PO SCH (09:36)
[2023-09-15] MEDS: DULoxetine HCL 20 MG CAP PO SCH (09:36)
[2023-09-15] MEDS: CHOLECALCIFEROL 5,000 UNITS 125 MCG TAB PO SCH (09:37)
[2023-09-15] MEDS: CYANOCOBALAMIN (B-12) 2,500 MCG TABLET PO SCH (09:37)
[2023-09-15] MEDS: INSULIN ASPART PER UNIT CHARGE SC SCH ×2 (09:39→12:54)
--- NOTE | 2023-09-15 10:05 | Discharge Summary ---
"Date of Service September 15, 2023 Admission HPI Per Admitting Provider Chief Complaint: The patient presents to the emergency department with complaint of severe pain in her right superior buttock area, making it difficult to ambulate. Primary Care Provider: Marilin Joshua PA-C The patient is a 83-year-old female with past medical history including gout, diabetes mellitus type 2, COPD, DIANA, hypertension, pulmonary edema, SNHL and elevated troponin levels. She presents to the emergency department with acute onset of right sacroiliac area pain, affecting her ability to ambulate. She denies any recent trauma, travels or sick exposures. She reports that the symptoms felt similar to previous gout attacks and other areas of her body. The patient was given methylprednisolone 125 mg IV and morphine sulfate 3 mg IV x 2 from the ED, and referred for evaluation for admission due to intractable pain and inability to ambulate Admission Exam Per Admitting Provider The patient is awake, alert and oriented 3, well developed and well nourished, normocephalic and atraumatic, lying in bed and in no acute distress. HEENT--PERRL, EOMI, mucous membranes and oropharynx normal. Neck--supple. No JVD. No bruits. Thyroid normal, trachea midline, no adenopathy. Heart--normal S1 and S2. No murmurs, rubs or gallops. Lungs--clear bilaterally, no respiratory distress, no paradoxical motion Extremities--no cyanosis or clubbing. No edema. Dermatologic--normal skin turgor, normal color, no abnormal lymph nodes, no rash. Neurologic--cranial nerves II through XII grossly intact. Rheumatologic--exam limited by body habitus and by right sacroiliac area pain Psychiatric--normal affect. Principal Diagnosis Sacroiliac/Hip Pain Piriformis Syndrome/Piriformis Tenderpoint Discharge Exam Gen: NAD, alert, interactive Resp:Non-labored, no wheezing/rhonchi/rales, CTAB CV:RRR, normal S1/S2, no M/R/G Abd: Soft, non-distended, no TTP, normoactive bowels, no masses Extr: 2+ dp bilaterally, no edema Skin: No rashes lesions or erythema OSE: - Significant lumbar tenderness to palpation of paraspinal musculature - Paraspinal hypertonicity of lumbar spine (right > left) - Piriformis tenderpoint - Left short leg - Decreased abduction/adduction of right hip, appropriate flexion Discharge Data Allergies Allergy/AdvReac Type Severity Reaction Status Date / Time No Known Allergies Allergy Verified 09/13/23 17:20 Consultations 09/13/23 21:25 ED Decision to Admit Stat Ordered Studies 09/13/23 22:22 CT hip RT wo con Stat CT lumbar spine wo con Stat CT pelvis wo con Stat Hospital Course (1) Pain of right sacroiliac joint: (2) Gout: (3) DM2 (diabetes mellitus, type 2): (4) COPD (chronic obstructive pulmonary disease): (5) Hypertension: April Villalobos is an 83F w/ history of DM2, COPD, gout, HTN, positional vertigo, tinnitus, and SNHL who presented for right hip pain. She notes that 2 weeks ago she was making her bed and 'tweaked' something in her right back/hip. She notes that she has been in a considerable amount of pain and that the pain feels like it is radiating down from her hip to her knee. She denies any acute bowel/bladder changes. She is not experiencing numbness or weakness of her legs. Patient endorses lumbar back pain, but does not associate this with her current presentation. She denies fevers, chills, nausea, or emesis. Piriformis Syndrome/Piriformis Tenderpoint w/ Sciatica - R SI Joint pain w/ piriformis syndrome - Imaging XR of Hip/Pelvis negative CT of Lumbar/Pelvis/Hips negative - Treatment Started on steroids at presentation, decreased dosing yesterday (Methylpred 40 IV daily) Continue home Cymbalta, Gabapentin, and Tylenol Tramadol 50mg PO Q4h PRN (mild benefit) - PT/OT recommending outpatient PT - Following initial evaluation in hospital and evidence of somatic dysfunction, recommending trial of OMT --- For pain control, short course of Tramadol sent in addition to OTC Voltaren gel TID --- Complete steroid taper with Medrol dose winston --- Patient may benefit from adjustments to Gabapentin dose as outpatient DM2 - Glipizide and Victoza held on admission - Started on Accu-Checks w/ Novolog SSI - Monitor closely while on steroids --- Return to home regimen upon discharge Hypertension | CKD stage III - Continue losartan-HCTZ - Hold diclofenac - Did receive Toradol x 1 dose to be able to get through CT studies - NSS at 80 mL/h x 1 L - Follow serial renal function panel and magnesium levels --- Creatinine increased from 1.31 to 1.45, follow up as outpatient in 1-2 weeks Diet: Heart Healthy, DM2 Code: Full Dispo: Home w/ PT & OMT outpatient Total Time Total Time Spent Total Time Spent (In Minutes): 45 (see attending attestation) Discharge Plan Discharge Items Patient Disposition: Home - Home Health Services Reason For Visit: INTRACTABLE HIP PAIN Discharge Diagnosis: intractable hip pain Activity: Per Instructions section Non-emergency contact: Primary Care Provider Call non-emergency contact if: you have any medication questions Follow-up/Referrals: Marilin Joshua PA-C [Primary Care Provider] - 09/23/23 2:45 pm (THIS APPOINTMENT WILL BE AT THE [facility]ICE WITH KYARA SZYMANSKI ) Diet: Carb Consistent or DM2 and Heart Healthy Addtl Attending Provider Instructions: You presented to the hospital for uncontrollable hip pain following an acute injury making your bed two weeks ago. You were admitted for evaluation and pain management. Fortunately, during your admission, imaging indicated that there were no acute bony abnormalities or fractures. Based on your history and presentation, your symptoms are most consistent with a diagnosis of Piriformis Syndrome. Piriformis Syndrome - This occurs when your piriformis muscle becomes aggravated/tight which then leads to pressure/compression of the sciatic nerve and hip/glute/leg pain. The effective treatments for Piriformis Syndrome is a combination of approaches. - Home stretching for the Piriformis muscle (reviewed during admission) - Activating blood flow w/ either warm moist heat or light aerobic activity - Topical Voltaren gel @ least three times daily for 3-4 days to see benefit - Osteopathic Manipulative Treatment (OMT) to address underlying somatic dysfunctions (muscle and bone abnormalities) - Physical Therapy (at home) Upon discharge, follow up with your PCP in 1-2 weeks. In addition, schedule an appointment for OMT to continue to address your underlying back, hip, and leg concerns. You may return to your home medications. You will be discharged with a Medrol dose pack to taper down your steroids as used inpatient. You may continue your home Cymbalta, Lyrica, and Tylenol for pain control. In addition, as mentioned above, it is recommended that you add a topical Voltaren gel (and discontinue oral diclofenac) to your symptom control regimen. In the short term, a short course of Tramadol 50 mg was sent to your pharmacy for pain control, this medication can be taken every 4 hours as needed for pain. Pending Studies at Discharge: No Stand-Alone Forms: My [facility], Smoking Cessation Medications and DC Order Prescriptions: New tramadol 50 mg Tablet 50 mg PO Q4H PRN (Reason: moderate pain) Qty: 10 0RF prednisone 10 mg tablet See Rx Instructions .ROUTE .COMPLEX Qty: 12 0RF Rx Instructions: Take 3 tablets once a day for 2 days then 2 tablets once a day for 2 days then 1 tablet once a day for 2 days Continued glipizide 5 mg tablet extended release 24 hr 5 mg PO BIDM levothyroxine 100 mcg tablet 100 mcg PO QAM gabapentin 100 mg capsule 0 mg PO BID Rx Instructions: Take 100mg by mouth in the morning and 200mg at bedtime albuterol sulfate 90 mcg/actuation HFA aerosol inhaler 1 - 2 puff INHALATION DAILY PRN (Reason: Shortness Of Breath Or Wheezing) duloxetine 20 mg capsule,delayed release(DR/EC) 20 mg PO QAM valsartan-hydrochlorothiazide 320-12.5 mg tablet 1 tab PO QAM Victoza 3-Winston 0.6 mg/0.1 mL (18 mg/3 mL) pen injector 0.9 mg SUBCUT HS allopurinol 300 mg tablet 150 mg PO QAM cholecalciferol (vitamin D3) [Vitamin D3] 125 mcg (5,000 unit) Tablet 125 mcg PO QAM cyanocobalamin (vitamin B-12) 5,000 mcg Capsule 5,000 mcg PO QAM Discontinued acetaminophen [Tylenol Ex Str Rapid Release] 500 mg Tablet 1,500 mg PO DAILY PRN (Reason: Pain) diclofenac sodium 50 mg tablet,delayed release (DR/EC) 50 mg PO BID Krames/Other Patient Handouts: Managing Type 2 Diabetes, Special Foot Care for Diabetes Admission Data Admit Date/Time: 09/13/23 22:51 Attending Provider: Gordo Albrecht Admit Provider: Fernando Reddy Primary Care Provider: Marilin Joshua Other Providers: Fernando Reddy; [facility] Supervising Physician Co-Signing Physician Notes I personally examined the patient and verified all salmon points of history and exam, discussed case, and agree with decision making with Dr Goodirch ongoing pain but feels up to going home. d/w dr garza yesterday - specifically asked that we/i assume her care because with biomechanical dx he felt she would likely benefit from OMT. pt quite hostile with me - some for unclear reasons, some because of understandable discomfort at the idea of male physician performing OMT in buttocks/pelvic region (which i empathized with and fortunately resident physician was female) - extensive discussion on biomechanics and management - dtr expressed understanding, pt largely expressed distaste at my presence. vitals noted no physical distress breathing unlabored no conversational dyspnea or accessory muscles. pt did not allow full exam/biomechanical exam from me. back pain - hx quite c/w dr garza's dx of piriformis mediated biomechanical dysfunction -discussed biomechanics/cause of pain -discussed OMT and how it's different from PT -pt did not want me touching her at all (undestandable with male physician/female patient, biomechanical dysfunction in buttocks/pelvis); female resident physician - see her notes -stretches, voltaren gel -stable for home -outpt OMT if does not improve with current level of care. Resident Activity Tracking Resident Involvement: Resident Care Provided Care Provided: Adult Hospital Medicine"
[2023-09-15 10:52] LABS: Appearance Urine Clear (Clear); Bacteria Urine Automated Negative (Negative); Bilirubin Urine Negative (Negative); Blood Urine Negative (Negative); Color Urine Yellow; Epithelial Cell Urine Auto >30 /lpf (0-5); Glucose Urine UA Negative (Negative); Ketones Urine Negative (Negative); Leukocyte Esterase Urine 3+ (Negative); Nitrite Urine Negative (Negative); Protein Urine Negative (Negative); RBC Urine Automated 0-4 /hpf (0-4); Specific Gravity Urine 1.011 (1.000-1.030); Urobilinogen Urine Negative (Negative); WBC Urine Automated >30 /hpf (0-5); pH Urine 5.5 (4.5-7.5)
--- NOTE | 2023-09-15 13:41 | Billing Data ---
Date of Service September 15, 2023 Coding Level of Care Code 64283 IN/OBS DISCH 30 MIN/LESS
--- NOTE | 2023-09-15 13:42 | Billing Data ---
Date of Service September 15, 2023 Coding Level of Care Code 20625 IN/OBS DISCH 30 MIN/LESS
== END 2023-09-15 14:45 | disposition home health service (06) ==
LOC: ED 16:06 → 2N 16:06 → SUATTDRO 22:51 → 2N 23:39